=== PATIENT | female | born 1945 | race Caucasian/White ===

== ENCOUNTER 2016-07-13 05:30 | Observation (INO) | payer MEDICARE, OTHER ==
[~2016-07-13] VITALS: Ht 162.6 cm; Wt 79.7 kg
[~2016-07-13 05:30] MED LIST: ALPR.5 PO; ASPI-110 PO; CALCTAB PO; DEXI30CA PO; GABA300C5 PO; JANU50TA4 PO; LIPI20TA PO; QUIN40TA2 PO; TRAM50TA PO; VENL75TA PO; VITA100036 PO
[2016-07-13] MEDS: CHLORHEXIDINE GLUCONATE 4% SOLN 120 ML BTL TOP SCH (06:00)
[2016-07-13] MEDS ORDERED: EXPAREL PERI-ARTICULAR INJECTION (TOTAL VOL. 100 ML) P-ARTICULR SCH ×2 (06:00)
[2016-07-13] MEDS ORDERED: INSULIN HUMAN REGULAR 1,000 UNITS/10 ML VIAL SQ PRN (06:00)
[2016-07-13] MEDS ORDERED: METOPROLOL TARTRATE 25 MG TAB PO PRN (06:00)
[2016-07-13] MEDS ORDERED: LACTATED RINGER'S 1000 ML IV SCH (06:00)
[2016-07-13] MEDS ORDERED: TRANEXAMIC ACID INJ 800 MG in SODIUM CHLORIDE 0.9% INJ 100 ML IV SCH ×4 (06:00)
[2016-07-13] MEDS ORDERED: SODIUM CHLORID 0.9% 500 ML IV SCH (06:00)
[2016-07-13] MEDS ORDERED: ceFAZolin 2 GM PREMIX 50 ML IV SCH (06:00)
[2016-07-13 06:06] VITALS: BP 159/69; PULSE 80; RESP 20; TEMP 98; O2SAT 99
[2016-07-13] MEDS ORDERED: ACETAMINOPHEN 1000 MG/100 ML VIAL IV ONE (06:47)
[2016-07-13] MEDS ORDERED: MIDAZOLAM HCL 2 MG/2 ML VIAL ONE (06:47)
[2016-07-13] MEDS ORDERED: FAMOTIDINE 20 MG/2 ML VIAL ONE (06:47)
[2016-07-13] MEDS ORDERED: GENTAMICIN SULFATE 80 MG/2 ML VIAL IRRIGATION ONE (07:45)
[2016-07-13] MEDS ORDERED: MORPHINE SULFATE 4 MG/ML INJ IV PUSH PRN (08:45)
[2016-07-13] MEDS ORDERED: ACETAMINOPHEN/HYDROcodone 325 MG/7.5 MG TAB PO PRN (08:45)
[2016-07-13] MEDS ORDERED: ZOLPIDEM TARTRATE 5 MG TAB PO PRN (08:45)
[2016-07-13] MEDS ORDERED: MAGNESIUM HYDROXIDE SUSP 30 ML CUP PO PRN (08:45)
[2016-07-13] MEDS ORDERED: Post-op Orders (for Pharmacy) MISC XX ONE (08:45)
[2016-07-13] MEDS ORDERED: ONDANSETRON HCL 4 MG/2 ML VIAL IVP PRN (08:45)
[2016-07-13] MEDS ORDERED: SODIUM CHLORIDE 0.9% FLUSH 5 ML FLUSH IVF PRN (08:45)
[2016-07-13] MEDS: SODIUM CHLORIDE 0.9% FLUSH 5 ML FLUSH IVF SCH ×2 (09:00→20:32)
[2016-07-13] MEDS: LACTATED RINGER'S 1000 ML INJ 1,000 ML IV SCH ×2 (09:10→20:35)
[2016-07-13] MEDS: KETOROLAC TROMETHAMINE 30 MG/ML (IVP) VIAL IVP SCH ×3 (09:10→20:32)
[2016-07-13] MEDS ORDERED: DO NOT ADM ANY ANTICOAGULANT DRUGS XX PRN (09:15)
--- NOTE | 2016-07-13 10:05 | RADRPT ---
EXAM DATE/TIME: 07/13/2016 08:57 [facility] COMPARISON: No previous studies available for comparison. INDICATIONS : Post op right knee surgery. MEDICAL HISTORY : None. SURGICAL HISTORY : None. ENCOUNTER: Initial ACUITY: 1 day PAIN SCORE: 0/10 LOCATION: Right knee FINDINGS: The patient is status post right total knee arthroplasty. The prosthesis appears to be in good posit ion. There is no fracture or dislocation. CONCLUSION: Status post right total knee arthroplasty with prosthesis in good position. Hudson Gonzalez MD on July 13, 2016 at 9:54 Board Certified Radiologist. This report was verified electronically.
[2016-07-13] MEDS ORDERED: LACTATED RINGER'S 1000 ML INJ 1,000 ML IV ONE (12:00)
[2016-07-13] MEDS ORDERED: PROPOFOL 200 MG/20 ML AMP IV ONE (12:00)
[2016-07-13] MEDS ORDERED: ONDANSETRON HCL 4 MG/2 ML VIAL IV PUSH ONE (12:00)
[2016-07-13] MEDS ORDERED: DEXAMETHASONE SOD PHOS PF 10 MG/ML VIAL IV ONE (12:49)
[2016-07-13] MEDS ORDERED: BUPIVACAINE HCL PF 0.5% 30 ML VIAL NB ONE (12:49)
[2016-07-13] MEDS: ACETAMINOPHEN/HYDROcodone 325 MG/7.5 MG TAB PO PRN ×2 (13:06→23:57)
[2016-07-13 14:20] VITALS: BP 129/71; PULSE 82; RESP 18; TEMP 98.2; O2SAT 93
[2016-07-13 16:00] VITALS: BP 118/60; PULSE 70; RESP 18; TEMP 98.1; O2SAT 94
--- NOTE | 2016-07-13 17:07 | PD.CONS ---
[facility] By Dr. Seay Reason for Consult Medical management Primary Care Physician Iram Sauer MD Diagnoses: History of Present Illness Patient is a very pleasant 71-year-old female who still actively plays golf who is admitted today and underwent right knee surgery by Dr. Seay. Patient has been having chronic right knee pain had actually undergone 4-5 surgeries fo hdyspnea. Baseline still gets around independently however with increasing pain and finally came in here to have surgery. Patient also with history of hypertension, diabetes type 2 with good hypoglycemic awareness. She checks her blood sugars at home twice a day and ranges around 150 to 180s. [facility] consulted for medical management. Review of Systems Constitutional: DENIES: Diaphoretic episodes, Fatigue, Fever, Weight gain, Weight loss, Chills, Dizziness, Change in appetite, Night Sweats Endocrine: DENIES: Abnorml menstrual pattern, Heat/cold intolerance, Polydipsia , Polyuria, Polyphagia Eyes: DENIES: Blurred vision, Diplopia, Eye inflammation, Eye pain, Vision loss , Photosensitivity, Double Vision Ears, nose, mouth, throat: DENIES: Tinnitus, Hearing loss, Vertigo, Nasal discharge, Oral lesions, Throat pain, Hoarseness, Ear Pain, Running Nose, Epistaxis, Sinus Pain, Toothache, Odynophagia Respiratory: DENIES: Apneas, Cough, Snoring, Wheezing, Hemoptysis, Sputum production, Shortness of breath Cardiovascular: DENIES: Chest pain, Palpitations, Syncope, Dyspnea on Exertion , PND, Lower Extremity Edema, Orthopnea, Claudication Gastrointestinal: DENIES: Abdominal pain, Black stools, Bloody stools, Constipation, Diarrhea, Nausea, Vomiting, Difficulty Swallowing, Anorexia Genitourinary: DENIES: Abnormal vaginal bleeding, Dysmenorrhea, Dyspareunia, Sexual dysfunction, Urinary frequency, Urinary incontinence, Urgency, Hematuria , Dysuria, Nocturia, Vaginal discharge Musculoskeletal: COMPLAINS OF: Joint pain, Stiffness Integumentary: DENIES: Abnormal pigmentation, Pruritus, Rash, Nail changes, Breast masses, Breast skin changes, Nipple discharge Hematologic/lymphatic: DENIES: Bruising, Lymphadenopathy Immunologic/allergic: DENIES: Eczema, Urticaria Neurologic: DENIES: Abnormal gait, Headache, Localized weakness, Paresthesias, Seizures, Speech Problems, Tremor, Poor Balance Psychiatric: COMPLAINS OF: Anxiety Past Family Social History Allergies: Coded Allergies: Penicillin (Verified Allergy, Severe, SWELLING HIVES ITCHING, 08/29/14) Past Medical History History of hypertension History of esophageal stricture.status post dilation, GERD History of anxiety disorder History of hyperlipidemia History of chronic pain History of neuropathy History of diabetes type 2 Past Surgical History Left knee with multiple surgeries L4 L5 S1 spinal surgery Gallbladder surgery Reported Medications As an outpatient Quinapril 40 mg daily Gabapentin Effexor Gen. mask Atorvastatin Aspirin [place] Os-Abdelrahman plus vitamin D Active Ordered Medications Currently IV morphine when necessary for pain Xarelto Ketorolac Family History Noncontributory Social History Denies smoking or alcohol use Physical Exam Vital Signs Vital Signs Date Time Temp Pulse Resp B/P Pulse Ox O2 Delivery O2 Flow Rate FiO2 07/13/16 11:00 78 16 135/53 95 Room Air 07/13/16 10:00 74 16 131/66 95 Room Air 07/13/16 09:45 70 16 121/57 96 Room Air 07/13/16 09:30 68 16 140/71 95 Room Air 07/13/16 09:15 66 16 123/70 95 Room Air 07/13/16 09:00 66 16 124/56 95 Room Air 07/13/16 08:45 97.6 70 16 122/45 95 Room Air 07/13/16 06:06 98.0 80 20 159/69 99 Physical Exam GENERAL: This is a well-nourished, well-developed patient, in no apparent distress. SKIN: No rashes, ecchymoses or lesions. Cool and dry. HEAD: Normocephalic. No temporal or scalp tenderness. EYES: Pupils equal round and reactive. Extraocular motions intact. No scleral icterus. No injection or drainage. ENT: Nose without bleeding Throat without erythema, ] NECK: Trachea midline. No JVD or lymphadenopathy. Supple, nontender, no meningeal signs. CARDIOVASCULAR: Regular rate and rhythm without murmurs, gallops, or rubs. RESPIRATORY: Clear to auscultation. Breath sounds equal bilaterally. No wheezes , rales, or rhonchi. GASTROINTESTINAL: Abdomen soft, non-tender, nondistended. No hepato-splenomegaly , or palpable masses. No guarding. MUSCULOSKELETAL: Extremities without clubbing, cyanosis, or edema. No joint tenderness, effusion, or edema noted. No calf tenderness. Negative Homans sign bilaterally. Left knee postop dressing in place NEUROLOGICAL: Awake and alert. Cranial nerves II through XII intact. Motor and sensory grossly within normal limits. Five out of 5 muscle strength in all muscle groups. Normal speech. Laboratory Laboratory Tests Test 07/13/16 06:10 Blood Type A POSITIVE Antibody Screen NEGATIVE Imaging Last Impressions Knee X-Ray 07/13/16 0838 Signed Impressions: Service Date/Time: Wednesday, July 13, 2016 08:57 - CONCLUSION: Status post right total knee arthroplasty with prosthesis in good position. Hudson Gonzalez MD Assessment and Plan Assessment and Plan 71-year-old female Status post right total knee replacement PTOT consult History of hypertension Continue on quinapril 40 mg daily History of diabetes type 2 We'll check fingersticks twice a day and record for now restart gentleman in a.m. Place on diabetic diet History of GERD/esophageal stricture status post dilatation Continue on PPI History of neuropathy continue on gabapentin History of anxiety/depression Patient specifically states that she needs her Xanax half tab at bedtime for sleep History of hyperlipidemia continue on atorvastatin Xarelto for DVT prophylaxis thank you for this consult we'll follow patient in-house with you Dominick Gaming MD Jul 13, 2016 17:07
[2016-07-13 20:00] VITALS: BP 126/60; PULSE 78; RESP 16; TEMP 98; O2SAT 94
[2016-07-13] MEDS: GABAPENTIN 300 MG CAP PO SCH (20:32)
[2016-07-13] MEDS ORDERED: ATORVASTATIN 20 MG TAB PO SCH (21:00)
[2016-07-13] MEDS ORDERED: ALPRAZolam 0.5 MG TAB PO SCH (21:00)
[2016-07-13] MEDS ORDERED: NON-FORMULARY DRUG (Sitagliptin-Metformin (Janumet) 1 TAB) PO SCH (21:00)
[2016-07-13] MEDS ORDERED: PT JANUMET PO SCH (21:00)
--- NOTE | 2016-07-13 21:17 | HHI.FF ---
Face to Face Verification Diagnosis: (1) Status post total right knee replacement Physical Therapy Gait training Knee: Total knee, Protocol: Right, Full weight bearing Right LE Weight Bearing: WB as tolerated Right LE Range of Motion: Active ROM (AROM, AAROM, PROM, PRE. ROM goal is 0 to 135 degrees.) Nursing Nursing: Dressing changes Dressing Changes: Daily dressing change, Coverderm/Primapore Additional Instructions Remove steristrips on postop day 14. I have seen patient Meri Guadalupe on 07/13/16. My clinical findings support the need for the requested home health care services because: Ltd mobility - disease progression Limited ability to care for self High risk of falls I certify that my clinical findings support that this patient is homebound because: Post-op weakness Unsteady gait/balance Unsafe to leave home unassisted Camilo Seay MD ([facility]) Jul 13, 2016 21:17
[2016-07-14] VITALS: BP 121/60; PULSE 69; RESP 18; TEMP 97; O2SAT 93
[2016-07-14] MEDS: KETOROLAC TROMETHAMINE 30 MG/ML (IVP) VIAL IVP SCH ×2 (02:54→09:26)
[2016-07-14 04:00] VITALS: BP 140/65; PULSE 74; RESP 18; TEMP 96.8; O2SAT 94
[2016-07-14] MEDS: CHLORHEXIDINE GLUCONATE 4% SOLN 120 ML BTL TOP SCH (06:00)
[2016-07-14 06:06] LABS: HEMATOCRIT 28.9 % (35.0-46.0)
[2016-07-14 06:07] LABS: REVIEW FLAG FINAL
--- NOTE | 2016-07-14 07:13 | PD.ORT.PN ---
Subjective Post Op Day #: 1 Range of Motion 0 to 85 degrees. Distance Walked 20, then 85 feet. Objective Vitals Vital Signs Date Time Temp Pulse Resp B/P Pulse Ox O2 Delivery O2 Flow Rate FiO2 07/14/16 04:00 96.8 74 18 140/65 94 07/14/16 00:00 97.0 69 18 121/60 93 07/13/16 20:00 98.0 78 16 126/60 94 07/13/16 16:00 98.1 70 18 118/60 94 07/13/16 14:20 98.2 82 18 129/71 93 07/13/16 13:45 97.6 87 16 134/70 96 Room Air 07/13/16 13:00 83 16 131/65 95 Room Air 07/13/16 12:00 82 16 129/64 95 Room Air 07/13/16 11:30 97.5 80 16 134/65 94 Room Air 07/13/16 11:00 78 16 135/53 95 Room Air 07/13/16 10:00 74 16 131/66 95 Room Air 07/13/16 09:45 70 16 121/57 96 Room Air 07/13/16 09:30 68 16 140/71 95 Room Air 07/13/16 09:15 66 16 123/70 95 Room Air 07/13/16 09:00 66 16 124/56 95 Room Air 07/13/16 08:45 97.6 70 16 122/45 95 Room Air I/O 07/13/16 07/13/16 07/13/16 07/14/16 07/14/16 07/14/16 07:00 15:00 23:00 07:00 15:00 23:00 Intake Total 540 ml 240 ml 600 ml Balance 540 ml 240 ml 600 ml Intake Oral 240 ml 240 ml 480 ml IV Total 300 ml 120 ml # Voids 1 3 Result Diagram: 07/14/16 0519 Imaging X-ray looks good. Last 24 hours Impressions Knee X-Ray 07/13/16 0838 Signed Impressions: Service Date/Time: Wednesday, July 13, 2016 08:57 - CONCLUSION: Status post right total knee arthroplasty with prosthesis in good position. Hudson Gonzalez MD Objective Remarks She is resting comfortably, supine in bed. The original dressing is dry and intact. The neurovascular status is intact. Assessment & Plan Ortho Post Op Day #: 1 Problem List: (1) Status post total right knee replacement Plan: Continue postop care and PT. Assessment and Plan Condition: good. Orthopaedically stable. Discharge plans: Home with [facility] today. Camilo Seay MD ([facility]) Jul 14, 2016 07:13
[2016-07-14] MEDS ORDERED: HYDR-3580 PO (07:50)
[2016-07-14] MEDS ORDERED: RIVAROXABAN 10 MG TAB PO SCH (08:00)
[2016-07-14 08:18] VITALS: BP 120/64; PULSE 65; RESP 17; TEMP 96.5; O2SAT 95
[2016-07-14] MEDS ORDERED: CALCIUM/VITAMIN D 250 MG/125 U TAB PO SCH (09:00)
[2016-07-14] MEDS ORDERED: ASPIRIN EC 81 MG TABEC PO SCH (09:00)
[2016-07-14] MEDS ORDERED: PANTOPRAZOLE SOD 40 MG DELAYED RELEASE TAB PO SCH (09:00)
[2016-07-14] MEDS ORDERED: VENLAFAXINE HCL XR 75 MG CAP PO SCH (09:00)
[2016-07-14] MEDS ORDERED: LISINOPRIL 20 MG TAB PO SCH (09:00)
[2016-07-14] MEDS ORDERED: NON-FORMULARY DRUG (Dexlansoprazole (Dexilant) 60 MG) PO SCH (09:00)
[2016-07-14] MEDS ORDERED: CALCIUM CARBONATE VITAMIN D PO SCH (09:00)
[2016-07-14] MEDS ORDERED: CHOLECALCIFEROL (VIT D3) 1000 UNIT TAB PO SCH (09:00)
[2016-07-14] MEDS ORDERED: NON-FORMULARY DRUG (Venlafaxine (Effexor) 75 MG) PO SCH (09:00)
[2016-07-14] MEDS: GABAPENTIN 300 MG CAP PO SCH (09:25)
[2016-07-14] MEDS: SODIUM CHLORIDE 0.9% FLUSH 5 ML FLUSH IVF SCH (09:26)
[2016-07-14] MEDS: LACTATED RINGER'S 1000 ML INJ 1,000 ML IV SCH (09:29)
[2016-07-14 09:32] VITALS: O2SAT 95
[2016-07-14 12:45] VITALS: BP 126/70; PULSE 68; RESP 16; TEMP 96.6; O2SAT 96
--- NOTE | 2016-07-14 14:00 | HHI.PR ---
Subjective Remarks pain controlled motivated with physical therapy states have equipments/commode at home Objective Vitals Vital Signs Date Time Temp Pulse Resp B/P Pulse Ox O2 Delivery O2 Flow Rate FiO2 07/14/16 12:45 96.6 68 16 126/70 96 07/14/16 09:32 95 21 07/14/16 08:18 96.5 65 17 120/64 95 07/14/16 04:00 96.8 74 18 140/65 94 07/14/16 00:00 97.0 69 18 121/60 93 07/13/16 20:00 98.0 78 16 126/60 94 07/13/16 16:00 98.1 70 18 118/60 94 07/13/16 14:20 98.2 82 18 129/71 93 I/O 07/13/16 07/13/16 07/13/16 07/14/16 07/14/16 07/14/16 07:00 15:00 23:00 07:00 15:00 23:00 Intake Total 540 ml 240 ml 600 ml Balance 540 ml 240 ml 600 ml Intake Oral 240 ml 240 ml 480 ml IV Total 300 ml 120 ml # Voids 1 3 Result Diagram: 07/14/16 0519 Imaging Last Impressions Knee X-Ray 07/13/16 0838 Signed Impressions: Service Date/Time: Wednesday, July 13, 2016 08:57 - CONCLUSION: Status post right total knee arthroplasty with prosthesis in good position. Hudson Gonzalez MD Objective Remarks awake and alert, oriented x 3 anicteric lungs clear regular rhythm abdomen soft, nontender extremities- knee- post op dressing in place Procedures total knee arthroplasty A/P Assessment and Plan 71-year-old female Status post right total knee replacement 07/13 PTOT , ortho ff- for DC today History of hypertension Continue on quinapril 40 mg daily History of diabetes type 2 diabetic diet History of GERD/esophageal stricture status post dilatation Continue on PPI. advise on reflux measures History of neuropathy continue on gabapentin History of anxiety/depression Xanax half tab at bedtime for sleep History of hyperlipidemia continue on atorvastatin DVT prophylaxis per primary service For DC today OP ff up with PCP Dominick Gaming MD Jul 14, 2016 13:59
[2016-07-14] MEDS ORDERED: DOCUSATE SODIUM 100 MG CAP PO SCH (21:00)
--- NOTE | 2016-07-18 21:34 | MP ---
cc: Kevin GARVIN. DATE OF SURGERY 07/13/16 PREOPERATIVE DIAGNOSIS Patellofemoral arthrosis post total knee arthroplasty, right knee POSTOPERATIVE DIAGNOSIS Patellofemoral arthrosis post total knee arthroplasty, right knee OPERATION PERFORMED Resurfacing right patella. SURGEON Valdemar Garvin MD ANESTHESIA Spinal with supplemental adductor canal block and local. INDICATIONS AND FINDINGS This 71-year-old woman has had pain in her right knee beginning approximately eight years ago. In 2001, she had a total knee arthroplasty carried out out of the area. She had a manipulation under anesthesia at that time. She improved and then subsequently has recently worsened over the past eight years. She has not responded to conservative measures including exercise and strengthening, nonsteroidal anti-inflammatory agents, activity modification, physical therapy and ambulatory aids. He is unable to walk more than a half of a mile because of the pain and has difficulty with stairs and standing from a seated position. Physical findings showed well-healed surgical scar with good motion but some crepitation of patellofemoral joint and tenderness about the patella. X-rays and an MRI showed total knee arthroplasty in place without wear or loosening. There is patella wear and subchondral sclerosis on the un-resurfaced patella. Operative findings showed loss of articular cartilage to bone on metal in the patellofemoral joint on the patella side. The prosthesis used was a Protem Triathlon prosthesis with a 32 mm asymmetric cemented patella. PROCEDURE IN DETAIL The patient was brought to the operating room after an adductor canal block was carried out preoperatively. She had the spinal anesthetic administered. She received prophylactic antibiotics in the form of Ancef. She also received tranexamic acid. She was placed in a supine position on the operating table with a small bolster under the hip. Pneumatic tourniquet was applied to the right thigh. The limb was then prepped with alcohol, Hibiclens and Chloraprep and draped in the usual manner with the knee draped free. An appropriate time-out procedure was carried out. Local anesthesia was administered in the incision site prior to making an incision. An anterior incision was made following the previous incisional scar. This was then carried down into the medial retinacular which was exposed medially and laterally. A retinacular incision was then made from the superior pole of the patella down to the mid patella tendon on the medial side and up into the quadriceps slightly. The patella was reflected. Dissection was carried out about the patella removing the redundant soft tissues. The posterior surface of patella was excised with the oscillating saw. A patella drill guide was positioned for a 32 mm asymmetric patella. Drill holes were made. The patella was then cemented into place with pressurized simplex cement from the cement gun. The tibial spacer was checked and appeared to be satisfactory. There was no significant bleeding from. A drain was not placed. Wound closure then commenced after injecting the entire operative area with Exparel. The fascial structures were repaired with 0 Vicryl interrupted [id number] sutures. The subcutaneous tissues were closed with 2-0 Vicryl interrupted simple sutures with buried knots. The skin was closed with continuous subcuticular closure of 4-0 Monocryl. The wound was then dressed with Steri-strips followed by a dry dressing, ABD pad, some Sof-Rol and Jarrett bandage. A cooling pad was placed over the top of this. She was taken from the operating room to the recovery room in satisfactory condition having tolerated the procedure well. Counts were correct. Specimens none. Estimated blood loss of 30 mL. MD MARGARITA Pinzon/ /1:16 PM /9:11 PM
== END 2016-07-14 16:32 | disposition home health service (06) ==
LOC: HSDC 05:30 → EDSTATUS 07:00 → INTOOBSV 08:39 → HSDI 08:39 → N06B 14:17
PROVIDERS: ADMIT Orthopaedic Surgery; ATTEND Orthopaedic Surgery
DX: M22.41 Chondromalacia patellae, right knee (principal); M23.8X1 Other internal derangements of right knee; M25.561 Pain in right knee; R26.2 Difficulty in walking, not elsewhere classified; I10 Essential (primary) hypertension; E11.40 Type 2 diabetes mellitus with diabetic neuropathy, unspecified; E78.5 Hyperlipidemia, unspecified; K21.9 Gastro-esophageal reflux disease without esophagitis; F41.9 Anxiety disorder, unspecified; Z96.651 Presence of right artificial knee joint; Z80.42 Family history of malignant neoplasm of prostate; Z80.0 Family history of malignant neoplasm of digestive organs; Z80.1 Family history of malignant neoplasm of trachea, bronchus and lung; Z80.8 Family history of malignant neoplasm of other organs or systems; Z82.49 Family history of ischemic heart disease and other diseases of the circulatory system
CPT/HCPCS: 01392; 27438; 64450; 73560; 82948; 85014; 85018; 86850; 86900; 86901; 94150; 97110; 97116; 97163; C1776; C9290; G0378; J0131; J0690; J1100; J1580; J1885; J2250; J2405; J3010; J7120; G8987-GP; G8988-GP

== ENCOUNTER 2016-12-22 07:05 | Emergency (ER) | payer MEDICARE, OTHER ==
[~2016-12-22] VITALS: Ht 167.6 cm; Wt 79.8 kg
[~2016-12-22 07:05] MED LIST changes: +HYDR-3580 PO
[2016-12-22 07:07] VITALS: PULSE 107; RESP 16; TEMP 98.9; O2SAT 96
[2016-12-22 07:30] VITALS: BP 159/72
[2016-12-22] MEDS ORDERED: ACETAMINOPHEN/HYDROcodone 325 MG/5 MG TAB PO ONE (07:30)
--- NOTE | 2016-12-22 07:34 | PD ---
HPI Chief Complaint: Respiratory Symptoms Time Seen by Provider: 07:22 Travel History International Travel<30 days: No Contact w/Intl Traveler<30days: No Traveled to known affect area: No History of Present Illness HPI The patient was seen and examined in the presence of the nurse. She complains of pain in her chest. It's located on the right side of the chest both front side and back. Duration 12 hours. No injury. Readily reproducible with movement or touching her chest wall. She does have COPD and has been coughing hard for the last couple of days. No fever. Symptoms severity is moderate. 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) Cardiovascular Problems: Yes (HTN, CHOL) High Cholesterol: Yes Chemotherapy: No Diabetes: Yes Diminished Hearing: No Endocrine: Yes Gastrointestinal Disorders: Yes GERD: Yes Genitourinary: No Hepatitis: No Hiatal Hernia: Yes Hypertension: Yes Immune Disorder: No Implanted Vascular Access Dvce: Yes Musculoskeletal: Yes (RIGHT PATELLA CRACKED,TEAR RIGHT ROTATOR CUFF, LEFT KNEE DEGENERATION) Neurologic: Yes (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, DIFFICULTY WITH BALANCE) Psychiatric: Yes (ANXIETY/DEPRESSION) Reproductive: No Respiratory: Yes (COPD) Immunizations Current: Yes Radiation Therapy: No Sleep Apnea: Yes (own c-pap) Thyroid Disease: No ?: Not Menopausal: Yes Past Surgical History Abdominal Surgery: Yes (LAP CHOLECYSTECTOMY) Body Medical Devices: LUMBAR HARDWARE Cholecystectomy: Yes Eye Surgery: Yes (BILATERAL CATARACT) Gynecologic Surgery: Yes (TUBAL LIG.) Joint Replacement: Yes (RIGHT KNEE) Pacemaker: No Tonsillectomy: Yes Other Surgery: Yes Social History Alcohol Use: Yes (OCCASIONALLY) Tobacco Use: No (QUIT 40 YRS AGO) Substance Use: No Allergies-Medications (Allergen,Severity, Reaction): Coded Allergies: Penicillin (Verified Allergy, Severe, SWELLING HIVES ITCHING, 12/22/16) Reported Meds & Prescriptions Reported Meds & Active Scripts Active Reported Quinapril HCl 40 Mg Tablet 1 Tab PO DAILY Calcium 500 + Vit D Caplet (Calcium Carbonate/Vitamin D3) 1 Each Tablet 1 Tab DAILY Dexilant (Dexlansoprazole) 60 Mg Sunil.bp 1 Cap PO EVERY OTHER DAY Gabapentin 300 Mg Cap 300 Mg PO HS Tramadol (Tramadol HCl) 50 Mg Tab 50 Mg PO Q4H PRN Janumet (Sitagliptin-Metformin) 50-500 Mg Tab 1 Tab PO BID Vitamin D3 (Cholecalciferol) 1,000 Unit Cap 1,000 Units PO DAILY Aspirin 81 (Aspirin) 81 Mg Tabdr 81 Mg PO DAILY Lipitor (Atorvastatin Calcium) 20 Mg Tab 20 Mg PO HS Xanax (Alprazolam) 0.5 Mg Tab 0.5 Mg PO HS Effexor (Venlafaxine HCl) 75 Mg Tab 75 Mg PO HS Review of Systems General / Constitutional: No: Fever Eyes: No: Visual changes HENT: No: Headaches Cardiovascular: Positive: Chest Pain or Discomfort Respiratory: Positive: Cough, No: Shortness of Breath Gastrointestinal: No: Abdominal Pain Genitourinary: No: Dysuria Musculoskeletal: No: Pain Skin: No Rash Neurologic: No: Weakness Psychiatric: No: Depression Endocrine: No: Polydipsia Hematologic/Lymphatic: No: Easy Bruising Physical Exam Narrative GENERAL: Well-nourished, well-developed patient in no apparent distress. SKIN: Focused skin assessment reveals no rash and nodules. Skin is Warm and dry. HEAD: Atraumatic. Normocephalic. EYES: Pupils equal and round. No scleral icterus. No injection or drainage. ENT: No nasal bleeding or discharge. Mucous membranes pink and moist. NECK: Trachea midline. No JVD. CARDIOVASCULAR: Regular rate and rhythm. No murmur appreciated. RESPIRATORY: No accessory muscle use. Clear to auscultation. Breath sounds equal bilaterally. GASTROINTESTINAL: Abdomen soft, non-tender, nondistended. Hepatic and splenic margins not palpable. MUSCULOSKELETAL: No obvious deformities. No clubbing. No cyanosis. No edema. Readily reproducible chest wall tenderness in the right side of the upper torso. It includes rib cage and pectoral region. No crepitus or bruising. NEUROLOGICAL: Awake and alert. No obvious cranial nerve deficits. Motor grossly within normal limits. Normal speech. PSYCHIATRIC: Appropriate mood and affect; insight and judgment normal. Data Data Last Documented VS Vital Signs Date Time Temp Pulse Resp B/P Pulse Ox O2 Delivery O2 Flow Rate FiO2 12/22/16 07:30 109 16 95 Room Air 12/22/16 07:30 159/72 12/22/16 07:07 98.9 Orders Chest, Single Ap (12/22/16 ) Acetamin-Hydrocod 325-5 Mg ([place] 5-325 (12/22/16 07:30) MDM Medical Decision Making Medical Screen Exam Complete: Yes Emergency Medical Condition: Yes Medical Record Reviewed: Yes Differential Diagnosis Chest wall pain, intercostal muscle strain, rib fracture Narrative Course I have reviewed the patient's electronic medical record. I reviewed her chest x-ray which shows some infiltrate which could be infectious. Coupled with her cough producing chest wall pain I've prescribed her Zithromax and a dozen Tylenol with codeine. This patient has clear-cut readily reproducible muscular skeletal chest wall pain. May have aggravated during her extended coughing spells. She has COPD but no longer smokes I gave her a pain pill here Diagnosis Primary Impression: Bronchopneumonia Additional Impressions: Musculoskeletal chest pain COPD (chronic obstructive pulmonary disease) Qualified Code: J44.0 - Chronic obstructive pulmonary disease with acute lower respiratory infection Additional Instructions: The patient was advised to follow up with their physician and return if they worsen. The patient was warned about potential sedation for the medications they will receive on prescription. Med/Other Pt SpecificInfo: Prescription(s) given Scripts Azithromycin (Zithromax Z-Alfredo)250 Mg Siel605 Mg PO DIRECTED #1 DSPK Ref 0 500 MG (2 tabs) day 1, then 1 tab days 2-5. Prov:Conner Chinchilla MD 12/22/16 Acetaminophen-Codeine (Tylenol-Codeine #3)300-30 mg Tab1 Tab PO Q6HR PRN (PAIN) #12 TAB Ref 0 Prov:Conner Chinchilla MD 12/22/16 Disposition: 01 DISCHARGE HOME Condition: Stable Conner Chinchilla MD Dec 22, 2016 07:34
[2016-12-22] MEDS ORDERED: DEXI60CA2 PO (07:41)
[2016-12-22] MEDS ORDERED: QUIN40TA17 PO (07:51)
[2016-12-22] MEDS ORDERED: CALCTAB25 (07:51)
--- NOTE | 2016-12-22 07:57 | RADHPO ---
EXAM DATE/TIME: 12/22/2016 07:39 [facility] COMPARISON: CHEST SINGLE AP, August 29, 2014, 19:34. INDICATIONS : Chest pain & shortness of breath. MEDICAL HISTORY : Hypercholesterolemia. Gastroesophageal reflux disease. Chronic obstructive pulmonary disease. Hardeep ropathy left lower extremity. Hypertension. Hiatial hernia. Diabetic. SURGICAL HISTORY : Tonsillectomy. Tubal ligation. Total knee replacement, right. Cholecystectomy. Lumbar laminectomy. EG D. ENCOUNTER: Initial ACUITY: 1 day PAIN SCORE: 7/10 LOCATION: chest FINDINGS: A single view of the chest demonstrates bibasilar patchy infiltrates greater right lower lobe. Heart normal in size. Osseous structures are intact. CONCLUSION: Bibasilar patchy pneumonia. Recommend treatment and followup to resolution. Mynor Sanchez MD on December 22, 2016 at 7:54 Board Certified Radiologist. This report was verified electronically.
[2016-12-22] MEDS ORDERED: TYLETAB34 PO (08:05)
[2016-12-22] MEDS ORDERED: ZITHTAB PO (08:05)
[2016-12-22 08:43] VITALS: BP 116/60
[2016-12-22 08:44] VITALS: RESP 16
== END 2016-12-22 09:00 | disposition home or self-care (01) ==
LOC: PHED 07:05
DX: J18.0 Bronchopneumonia, unspecified organism (principal); R07.89 Other chest pain; J44.0 Chronic obstructive pulmonary disease with (acute) lower respiratory infection; Z79.01 Long term (current) use of anticoagulants; I10 Essential (primary) hypertension
CPT/HCPCS: 71010; 99284

== ENCOUNTER 2016-12-24 15:39 | Inpatient (IN) | payer MEDICARE, OTHER ==
[~2016-12-24 15:39] MED LIST changes: -CALCTAB PO; +CALCTAB25; -DEXI30CA PO; +DEXI60CA2 PO; -HYDR-3580 PO; +QUIN40TA17 PO; -QUIN40TA2 PO; +TYLETAB34 PO; +ZITHTAB PO
[2016-12-24 16:00] VITALS: BP 165/70; PULSE 94; RESP 18; TEMP 102.4; O2SAT 92
[2016-12-24] MEDS ORDERED: VANCOMYCIN 1,000 MG/NS 250 ML IV ONE ×4 (16:45→21:00)
[2016-12-24] MEDS ORDERED: cefTRIAXone 1,000 MG/NS 100 ML IV SCH ×2 (17:00)
[2016-12-24 17:14] LABS: MEAN CELL VOLUME 68.8 FL (80.0-100.0); MEAN CORPUSCULAR HEMOGLOBIN 21.4 PG (27.0-34.0); PLATELET COUNT 237 TH/MM3 (150-450); RED BLOOD COUNT 4.21 MIL/MM3 (4.00-5.30); RED CELL DISTRIBUTION WIDTH 16.5 % (11.6-17.2)
[2016-12-24] MEDS ORDERED: ONDANSETRON ODT 4 MG TAB PO PRN (17:15)
[2016-12-24] MEDS ORDERED: ACETAMINOPHEN 500 MG CPLT PO PRN (17:15)
[2016-12-24 17:19] LABS: CHLORIDE 100 MEQ/L (98-107); POTASSIUM 3.8 MEQ/L (3.5-5.1); SODIUM (NA) 135 MEQ/L (136-145)
[2016-12-24 17:23] LABS: ANION GAP 10 MEQ/L (5-15); BICARBONATE 25.1 MEQ/L (21.0-32.0); BLOOD UREA NITROGEN 17 MG/DL (7-18)
[2016-12-24 17:26] LABS: ALT (GPT) 34 U/L (10-53); AST (GOT) 23 U/L (15-37); GLOMERULAR FILTRATION RATE 70 ML/MIN (>89)
[2016-12-24 17:27] LABS: TOTAL BILIRUBIN ADULT 0.9 MG/DL (0.2-1.0)
[2016-12-24 17:29] LABS: ALKALINE PHOSPHATASE 90 U/L (45-117)
[2016-12-24 17:33] LABS: HEMO FLAGS AUTO DIFF
[2016-12-24 17:35] VITALS: TEMP 102.7
[2016-12-24 18:39] LABS: BANDS 4 % (0-6); EOSINOPHILS 1 % (0-4); NEUTROPHIL # MANUAL DIFF 11.2 TH/MM3 (1.8-7.7); POLYS (SEG NEUTROPHILS) 89 % (16-70); WBC DIFF SAMPLE 100
[2016-12-24 18:42] LABS: PLATELET ESTIMATE SMEAR NORMAL (NORMAL); PLATELET MORPHOLOGY NORMAL (NORMAL); SCAN/DIFF FINAL DIFF MANUAL
[2016-12-24 18:45] VITALS: TEMP 101
--- NOTE | 2016-12-24 19:32 | RADRPT ---
EXAM DATE/TIME: 12/24/2016 18:15 [facility] COMPARISON: No previous studies available for comparison. INDICATIONS : Pneumonia. Chest pain and cough x 2 days. RADIATION DOSE: 12.51 CTDIvol (mGy) MEDICAL HISTORY : Gastroesophageal reflux disease. Hernia, hiatal. Chronic obstructive pulmonary disease. Diabetes. Hy pertension. SURGICAL HISTORY : Cholecystectomy. ENCOUNTER: Initial ACUITY: 2 days PAIN SCALE: 4/10 LOCATION: Bilateral chest TECHNIQUE: Volumetric scanning of the chest was performed. Using automated exposure control and adjustment of t he mA and/or kV according to patient size, radiation dose was kept as low as reasonably achievable to obtain optimal diagnostic quality images. DICOM format image data is available electronically for r eview and comparison. FINDINGS: LUNGS: There is no pneumothorax. There is dense consolidation in both lower lobes with air bronchograms righ t greater than left. No concerning pulmonary nodule is visualized. PLEURAE: There is no pleural thickening or pleural effusion. MEDIASTINUM: The heart and great vessels demonstrate no acute abnormality. There is no mediastinal or hilar lymph adenopathy. AXILLAE: Within normal limits. No lymphadenopathy. MUSCULOSKELETAL: Within normal limits for patient age. MISCELLANEOUS: The visualized upper abdominal organs demonstrate no acute abnormality. There is a large cystic struc ture in the left lobe of the liver measuring up to 5.1 x 2.9 cm in diameter. The patient is status po st cholecystectomy. CONCLUSION: 1. Dense consolidation in both lower lobes right greater than left consistent with the history of pne umonia. 2. Large cystic structure in the left lobe of the liver. Jose Gonsalez MD on December 24, 2016 at 19:26 Board Certified Radiologist. This report was verified electronically.
[2016-12-24 20:00] VITALS: BP 129/73; PULSE 104; PULSE 108; RESP 18; TEMP 100.6; O2SAT 91
[2016-12-24] MEDS: RESP: ALBUTEROL 2.5 MG/IPRATROPIUM 0.5 MG NEB (SCH) NEB (20:00)
[2016-12-24] MEDS: cefTRIAXone 1,000 MG/NS 100 ML IV SCH ×2 (20:54)
[2016-12-24] MEDS: SODIUM CHLOR 0.9% 1000 ML INJ 1,000 ML IV SCH ×2 (20:54→22:37)
[2016-12-24] MEDS: GABAPENTIN 300 MG CAP PO SCH (20:54)
[2016-12-24] MEDS: ALPRAZolam 0.5 MG TAB PO PRN (20:55)
[2016-12-24 21:25] VITALS: O2SAT 93
[2016-12-25] VITALS (12 sets, daily range): BP systolic 88–143; BP diastolic 53–74; PULSE 88–111; RESP 16–21; TEMP 98.2–101.7; O2SAT 88–96
--- NOTE | 2016-12-25 07:13 | HHI.FPPN ---
Subjective Remarks Slept last PM, still with fever. Cough without sputum. Notes chest feels tight , some mid back pain, postitive nausea, no vomiting. no diarrhea. no edema, no leg pain. Overall fatigued. Notes she was able to eat a little last PM. Frustrated with being ill. Notes her sugars have been pretty well controlled but since she was recently on steroids her sugars were a bit higher. Objective Vitals Vital Signs Date Time Temp Pulse Resp B/P Pulse Ox O2 Delivery O2 Flow Rate FiO2 12/25/16 04:00 100.1 107 18 135/74 94 12/25/16 00:00 101.7 111 16 143/72 88 12/24/16 21:25 93 Nasal Cannula 2.00 12/24/16 20:00 104 12/24/16 20:00 100.6 108 18 129/73 91 12/24/16 18:45 101.0 12/24/16 17:35 102.7 12/24/16 16:00 102.4 94 18 165/70 92 I/O 12/24/16 12/24/16 12/24/16 12/25/16 12/25/16 12/25/16 07:00 15:00 23:00 07:00 15:00 23:00 Intake Total 700 ml Balance 700 ml Intake Oral 700 ml # Voids 2 # Bowel Movements 0 Result Diagram: 12/24/16 1635 12/24/16 1635 Objective Remarks Gen: wdwf on nasal CPAP. no distress, laying supine, breathing calmly, seems fatigued, just not feeling great. Has had fevers to 102 most of the night CV: RRR, no longer tachycardic Lungs: diminished at the bases, no rhonchi this AM, better air movement (but she is on her CPAP) Abd: soft, NT, normal BS Ext: thin, no edema Urinary Catheter: No Vascular Central Line Catheter: No A/P Problem List: (1) Sepsis Status: Acute Plan: Elevated WBC, fever to 102, tachycardia, bilateral Lower lobe pneumonia. lactic acid was wnl. Pending blood and sputum cultures. Stable at this time (2) Pneumonia of both lower lobes Status: Acute Plan: She has been ill intermittantly since October never with complete resolution. She has been on cipro and 2 courses of zithromax along with steroid courses without improvement. I have stopped the steroids at this time. I put her on Rocephin (she just completed 5 days of zithromax yesterday) and Vanco 1gm yesterday. Pending cultures and respiratory panels and legionella titers. ID consult placed. Start incentive spirometry. she has PCN allergy. Activity as tolerated in her room. Anticipate at least a 3 day hospitalization for evaluation and stabilization. O2 sats have been good. (3) COPD (chronic obstructive pulmonary disease) Status: Chronic Plan: She wasn't symptomatic until being ill. She has been on breo for the past month with some improvement. Continuing at this time. (4) Hyperlipidemia Status: Chronic Plan: She has been on lipitor 20mg per day. I am holding this for now due to acute infection. (5) Hypertension Status: Chronic Plan: She has been well controlled with NIRALI-I. Renal function is good. Continue for now but adjust if BPs go low with infection. (6) Type 2 diabetes mellitus Status: Chronic Plan: She has been on janumet 50/500mg 2 tabs PO daily for some time. I am holding it now with acute infection. May need to restart. Monitor blood sugars at least BID. Problem Qualifiers (1) Sepsis: Qualified Code: A41.9 - Sepsis, due to unspecified organism (2) Pneumonia of both lower lobes: Qualified Code: J18.9 - Pneumonia of both lower lobes due to infectious organism (3) COPD (chronic obstructive pulmonary disease): Qualified Code: J44.0 - Chronic obstructive pulmonary disease with acute lower respiratory infection (4) Hyperlipidemia: Qualified Code: E78.2 - Mixed hyperlipidemia (5) Hypertension: Qualified Code: I10 - Essential hypertension (6) Type 2 diabetes mellitus: Qualified Code: E11.9 - Type 2 diabetes mellitus without complication, without long-term current use of insulin Iram Sauer MD Dec 25, 2016 07:13
[2016-12-25] MEDS: RESP: ALBUTEROL 2.5 MG/IPRATROPIUM 0.5 MG NEB (SCH) NEB ×4 (07:52→19:58)
--- NOTE | 2016-12-25 08:08 | MH ---
cc: DESMOND CORREA DATE OF ADMISSION 12/24/2016 DATE OF 1945 CHIEF COMPLAINT Feeling poorly. ADMISSION DIAGNOSIS Bilateral pneumonia, fever, possible sepsis. HISTORY OF PRESENT ILLNESS Ms. Guadalupe is a 71-year-old white female who is has essentially been ill since October. She initially had been ill, had been seen in Urgent Care and given Cipro and steroids. She seemed to improve gradually. By November, she had recurrent symptoms and was treated with Zithromax. Again, she improved slightly but not completely. She recently went back to the urgent care over the week and was given another course of Zithromax. We had also started her on Breo for a decrease in her spirometry somewhere in the interim which also did give her some momentary relief of symptoms. Today she comes in and she is having fever, lethargy, decreased appetite, cough with a brownish yellow sputum and overall feeling poorly. PAST MEDICAL HISTORY Significant for history of: 1. Insomnia 2. Type 2 diabetes well controlled without medications. 3. Hyperlipidemia 4. Peripheral neuropathy 5. Hypertension 6. Gastroesophageal reflux disease 7. Sebaceous cyst 8. Hidradenitis 9. History of bronchitis. 10. Santizo's esophagus 11. Diverticulosis PAST SURGICAL HISTORY 1. Right knee replacement in July 2016 2. Bilateral cataract surgery 3. Lumbar disk surgery SOCIAL HISTORY She is . She is retired since 2011. She had smoked two packs per day for 20 years, quit in 1987. She has minimal alcohol. No illicit drugs. MEDICATIONS 1. DuoNeb q.i.d. 2. Prednisone 10 mg a day 3. Breo elliptica one inhalation daily 200/25 micrograms dose 4. Quinapril 40 mg daily 5. Dexilant 60 mg daily 6. Alprazolam 1 mg at bedtime p.r.n. insomnia 7. Venlafaxine 75 mg daily 8. Lipitor 20 mg per day 9. Janumet 50-500 mg two tabs daily 10. Gabapentin 300 mg b.i.d. 11. Aspirin 81 mg daily ALLERGIES PENICILLIN WHICH CAUSED RASH, AMBIEN, LUNESTA, RESTORIL CAUSED HER TO HAVE SLEEP WALKING AND JUST DID NOT WORK, LYRICA SHE DID NOT TOLERATE. FAMILY HISTORY Brother in A snow mobile accident. Dad had colon cancer, prostate cancer, skin cancers, heart disease, . Mom had hyperlipidemia, hypertension and arthritis, at age 81. She also had lung cancer. VACCINE Flu vaccines yearly, Prevnar 12/2014, Pneumovax June 2013. OTHER PHYSICIANS Dr. Butts PAST SURGICAL HISTORY She did have a colonoscopy in September of this year. OBJECTIVE VITAL SIGNS: In my office, she had a temperature 99.8 with O2 sat of 95%, blood pressure 128/70, heart rate was 110. GENERAL: She is a well-developed white female appearing acutely ill. She was sitting in the chair leaning against her very fatigued, looking comfortable. HEENT: Pupils are equal and reactive, but sluggish eyelids. Oropharynx is moist. She has dentures. No lesions. Tympanic membranes within normal limits bilaterally. NECK: Supple without lymphadenopathy. LUNGS: Shows diffusely decreased breath sounds with rhonchi at the bilateral bases. No egophony audible. No wheezing. Respiratory rate was 26 on exam. CARDIOVASCULAR: Regular rate and rhythm, but tachycardic, heart rate 100. No murmur. ABDOMEN: Soft and nontender. EXTREMITIES: No rashes. No edema. 2+ pulses throughout. No signs of ischemia. MUSCULOSKELETAL: She is generally weak with no focal deficits. ASSESSMENT AND PLAN 1. Pneumonia. She had recently been to the emergency room and found to have bilateral lower lobe infiltrates. It seems as though that may have progressed. I am going to admit her to the hospital for IV antibiotics given her failure of outpatient therapy and will continue nebulizer therapy, oxygen as needed, started on incentive spirometry and have ordered a CT scan of the thorax to evaluate further given her prior tobacco history and recurrent illness. Depending upon the outcome of the CT scan, we will either consult pulmonology or infectious disease to aid in care given her prolonged illness. I have placed on Rocephin and a dose of vancomycin to start and have ordered a sputum culture, AFB stain and culture and need to be on respiratory isolation. 2. Hypertension. We will continue her medications. 3. Hyperlipidemia. I am holding her cholesterol medications for right now due to her adenomas. 4. Type 2 diabetes. She is spending the night, I will hold meds for now given acute illness and sepsis due to the metformin component restart medications if needed when stabilized, may use insulin in the interim if needed. MD DEVON Griffiths/KAYLEIGH /5:51 AM /7:50 AM MTDPhani
[2016-12-25] MEDS: ENOXAPARIN SODIUM 30 MG/0.3 ML SYRINGE SQ SCH (08:53)
[2016-12-25] MEDS: PANTOPRAZOLE SOD 40 MG DELAYED RELEASE TAB PO SCH (08:53)
[2016-12-25] MEDS: LISINOPRIL 20 MG TAB PO SCH (08:54)
[2016-12-25] MEDS: VENLAFAXINE HCL XR 37.5 MG CAP PO SCH (08:54)
[2016-12-25] MEDS: GABAPENTIN 300 MG CAP PO SCH ×2 (08:54→20:39)
[2016-12-25] MEDS: SODIUM CHLOR 0.9% 1000 ML INJ 1,000 ML IV SCH ×2 (08:55→16:50)
[2016-12-25] MEDS ORDERED: BREO ELLIPTA INH SCH (09:00)
[2016-12-25] MEDS: ACETAMINOPHEN/HYDROcodone 325 MG/5 MG TAB PO PRN ×2 (09:08→16:53)
[2016-12-25 09:45] LABS: BOR. HOLMESII NOT DETECTED (NOT DETECT); BOR. PARA/BRONCH NOT DETECTED (NOT DETECT); BOR. PERTUSSIS NOT DETECTED (NOT DETECT); INFLUENZA B NOT DETECTED (NOT DETECT); RESP SYNCYTIAL VIRUS A NOT DETECTED (NOT DETECT); RESP SYNCYTIAL VIRUS B NOT DETECTED (NOT DETECT)
--- NOTE | 2016-12-25 16:10 | PD.CONS ---
History of Present Illness Service Infectious disease Consult Requested By Dr. Sauer Reason for Consult Evaluate patient with pneumonia, failed outpatient treatment Primary Care Physician Iram Sauer MD Diagnoses: History of Present Illness Patient seen and examined. Records reviewed. Patient is a 71-year-old female, who has a history of heavy smoking, but she quit back in 1987, was apparently recently told that she has COPD. In the past when she would have an upper respiratory infection, it would quickly go to her chest and she would have bouts of bronchitis. Her most recent problems started in October when she started having cough and congestion, and she would bring up some greenish phlegm. Gone to the [facility] urgent [facility] center, and was diagnosed to have bronchitis, and was given some antibiotic. There was no chest x-ray done at that time, and she didn't think she had any fever or chills at that time. She would usually take the antibiotic for about a week, and there was some partial improvement in her symptoms. In November she had another episode and again went to walk-in clinic, and given antibiotic with some partial relief. More recently she had recurrence of the symptoms but this time she was having trouble breathing, and was having a hard time expectorating. She went to the emergency room here, and a chest x-ray was done which showed basilar infiltrates , and she was diagnosed to have bronchopneumonia, and was given some antibiotic. She started having some fevers and some chills, and noticed that she's been getting more short of breath, which apparently has been present over the last 3 weeks, but has just recently been worsening. She was also getting some discomfort in the right lateral chest area, which seems to be worsening. She presented back to the hospital and has now been admitted. CT of the chest did show evidence of basilar infiltrates bilaterally. She has been febrile. Patient denies any recent exposure to any sick child. No exposure to any birds. She lives with the who apparently does not have any problem as far as respiratory infection. No recent travel. Infectious disease consultation has been requested to evaluate the patient. Review of Systems Constitutional: COMPLAINS OF: Fever, Chills, Night Sweats Eyes: DENIES: Eye pain Ears, nose, mouth, throat: DENIES: Nasal discharge, Oral lesions, Ear Pain Respiratory: COMPLAINS OF: Cough, Shortness of breath, DENIES: Sputum production Cardiovascular: COMPLAINS OF: Chest pain, DENIES: Palpitations, Syncope Gastrointestinal: DENIES: Abdominal pain, Diarrhea, Nausea, Vomiting, Difficulty Swallowing Genitourinary: COMPLAINS OF: Dysuria Musculoskeletal: COMPLAINS OF: Back pain, DENIES: Neck pain Integumentary: DENIES: Rash Hematologic/lymphatic: DENIES: Lymphadenopathy Neurologic: DENIES: Headache Psychiatric: DENIES: Confusion, Hallucinations Past Family Social History Allergies: Coded Allergies: Penicillin (Verified Allergy, Severe, SWELLING HIVES ITCHING, 12/22/16) Past Medical History Insomnia Type 2 diabetes well controlled without medications. Hyperlipidemia Peripheral neuropathy Hypertension Gastroesophageal reflux disease Sebaceous cyst Hidradenitis History of bronchitis. Santizo's esophagus Diverticulosis Past Surgical History Right knee replacement in July 2016 Bilateral cataract surgery Lumbar disk surgery Active Ordered Medications Tylenol [place] Albuterol Xanax Rocephin Lovenox Neurontin Levaquin Prinivil Zofran Protonix Effexor Family History Brother in snow mobile accident. Dad had colon cancer, prostate cancer, skin cancers, and heart disease. Mom had hyperlipidemia, hypertension and arthritis, at age 81. She also had lung cancer. Social History She is . She is retired since 2011. She had smoked two packs per day for 20 years, quit in 1987. She has minimal alcohol. No illicit drugs. Physical Exam Vital Signs Vital Signs Date Time Temp Pulse Resp B/P Pulse Ox O2 Delivery O2 Flow Rate FiO2 12/25/16 15:00 88 12/25/16 12:00 98.4 100 20 88/58 95 12/25/16 10:08 18 12/25/16 08:00 99.5 102 21 126/67 95 12/25/16 07:54 95 Nasal Cannula 2.00 12/25/16 07:00 97 12/25/16 04:00 100.1 107 18 135/74 94 12/25/16 00:00 101.7 111 16 143/72 88 12/24/16 21:25 93 Nasal Cannula 2.00 12/24/16 20:00 104 12/24/16 20:00 100.6 108 18 129/73 91 12/24/16 18:45 101.0 12/24/16 17:35 102.7 Physical Exam GENERAL: Patient is a well-nourished, well-developed patient, awake and alert , not in respiratory distress. SKIN: Warm and dry. No generalized rash, no ecchymoses and no evidence of embolic lesions. HEAD: Atraumatic. Normocephalic. No temporal wasting, or tenderness. EYES: [place] conjunctiva. No petechia or hemorrhage. Pupils equal, round and reactive to light. Extraocular movements full and intact. No scleral icterus. No injection or drainage. EARS, NOSE AND THROAT: Nose without bleeding or purulent nasal discharge. No sinus tenderness. Mucous membranes pink and moist. No oral lesions noted. No exudate. No oral thrush. NECK: Trachea midline. Supple and not tender, no meningeal signs CARDIOVASCULAR: Regular rate and rhythm. No murmurs, rubs or gallops heard RESPIRATORY: Clear to auscultation. Breath sounds equal bilaterally. No rales , wheezing or rhonchi ABDOMEN: Soft, non-tender, nondistended. Bowel sounds present and normoactive. No guarding. No rebound. No organomegaly. EXTREMITIES: No clubbing, cyanosis, or edema.No joint effusion, has good ROM. No calf tenderness. Well perfused and warm. NEUROLOGICAL: Awake and alert. Cranial nerves grossly intact. Motor grossly within normal limits. PSYCHIATRIC: Normal affect, calm and cooperative. LINE: No evidence of infection Laboratory Laboratory Tests Test 12/24/16 12/24/16 16:35 20:50 White Blood Count 12.0 Red Blood Count 4.21 Hemoglobin 9.0 Hematocrit 29.0 Mean Corpuscular Volume 68.8 Mean Corpuscular Hemoglobin 21.4 Mean Corpuscular Hemoglobin 31.0 Concent Red Cell Distribution Width 16.5 Platelet Count 237 Mean Platelet Volume 8.7 Neutrophils (%) (Auto) Lymphocytes (%) (Auto) Monocytes (%) (Auto) Eosinophils (%) (Auto) Basophils (%) (Auto) Neutrophils # (Auto) Lymphocytes # (Auto) Monocytes # (Auto) Eosinophils # (Auto) Basophils # (Auto) CBC Comment AUTO DIFF Differential Total Cells 100 Counted Neutrophils % (Manual) 89 Band Neutrophils % 4 Lymphocytes % 5 Monocytes % 1 Eosinophils % 1 Neutrophils # (Manual) 11.2 Differential Comment FINAL DIFF MANUAL Platelet Estimate NORMAL Platelet Morphology Comment NORMAL Sodium Level 135 Potassium Level 3.8 Chloride Level 100 Carbon Dioxide Level 25.1 Anion Gap 10 Blood Urea Nitrogen 17 Creatinine 0.81 Estimat Glomerular Filtration 70 Rate Random Glucose 144 Lactic Acid Level 1.5 Calcium Level 8.9 Total Bilirubin 0.9 Aspartate Amino Transf 23 (AST/SGOT) Alanine Aminotransferase 34 (ALT/SGPT) Alkaline Phosphatase 90 Total Protein 6.9 Albumin 2.8 Adenovirus (PCR) NOT DETECTED Bordetella holmesii (PCR) NOT DETECTED Bordetella pertussis DNA (PCR) NOT DETECTED B. parapertussis/bronchi (PCR) NOT DETECTED Human Metapneumovirus (PCR) NOT DETECTED Influenza Type A (RT-PCR) NOT DETECTED Influenza Type A (H1) (PCR) NOT DETECTED Influenza Type A (H3) (PCR) NOT DETECTED Influenza Type B (RT-PCR) NOT DETECTED Parainfluenza Type 1 (PCR) NOT DETECTED Parainfluenza Type 2 (PCR) NOT DETECTED Parainfluenza Type 3 (PCR) NOT DETECTED Parainfluenza Type 4 (PCR) NOT DETECTED Resp Syncytial Virus Type A NOT DETECTED (PCR) Resp Syncytial Virus Type B NOT DETECTED (PCR) Rhinovirus (PCR) NOT DETECTED Date/Time Procedure Status Source Growth 12/24/16 16:48 Aerobic Blood Culture - Preliminary Resulted Blood Peripheral NO GROWTH IN 1 DAY 12/24/16 16:48 Anaerobic Blood Culture - Preliminary Resulted Blood Peripheral NO GROWTH IN 1 DAY Result Diagram: 12/24/16 1635 12/24/16 1635 Assessment and Plan Assessment and Plan IMPRESSION Bilateral pneumonia Previous episodes of bronchitis, likely COPD exacerbation - not known if with PNA, CXR not done, but symptoms sound more of bronchitis COPD,. with previous Hx heavy smoking RECOMMENDATION Continue Rocephin Add Levaquin for atypical coverage Will obtain mycoplasma and chlamydia antibody Try to get sputum G/S C/S Check Legionella, pneumococcal antigen Check influenza Follow cultures and adjust antibiotics accordingly Follow temps Monitor progress I will determine course of treatment depending on the results of the workup I will follow along with you Thank you for this consultation Discussed Condition With Explained plan to the patient Miesha Yancey MD Dec 25, 2016 16:10
[2016-12-25] MEDS: LEVOFLOXACIN 750 MG PREMIX INJ 150 ML IV SCH (16:51)
[2016-12-25 18:55] LABS: BLOOD, URINE TRACE (NEG); GLUCOSE,URINE 500 mg/dL (NEG); KETONE, URINE TRACE mg/dL (NEG); NITRITE,URINE NEG (NEG); PH, URINE 5.5 (5.0-8.5)
[2016-12-25 19:00] LABS: URINE COLOR YELLOW (YELLW/STRAW)
[2016-12-25 19:01] LABS: COMMENT (UR) CULT NOT INDICATED; CULTURE IF INDICATED CULT NOT INDICATED; RBC, URINE 0-2 /hpf (0-3); WBC, URINE 0-2 /hpf (0-5)
[2016-12-25] MEDS: cefTRIAXone 1,000 MG/NS 100 ML IV SCH ×2 (20:39)
[2016-12-25] MEDS: ALPRAZolam 0.5 MG TAB PO PRN (22:00)
[2016-12-26] VITALS (10 sets, daily range): BP systolic 83–142; BP diastolic 55–77; PULSE 73–106; RESP 14–22; TEMP 97.8–100.1; O2SAT 94–100
[2016-12-26] MEDS: SODIUM CHLOR 0.9% 1000 ML INJ 1,000 ML IV SCH (05:32)
[2016-12-26] MEDS: RESP: ALBUTEROL 2.5 MG/IPRATROPIUM 0.5 MG NEB (SCH) NEB ×4 (07:42→19:06)
--- NOTE | 2016-12-26 09:49 | HHI.PR ---
Subjective Remarks Written by Conner Hawk, acting as scribe for Dr. Ocasio on 12/26/16 at 09: 48. Patient is seen and examined today with Dr. Ocasio. Patient states that she did not get much sleep last night due to further testing that was ordered. She indicates that she tried to ambulate more yesterday however got really winded and short of breath. She does not have oxygen at home, will likely need evaluation for home oxygen prior to discharge. Patient afebrile for over [address] by infectious disease Objective Vitals Vital Signs Date Time Temp Pulse Resp B/P Pulse Ox O2 Delivery O2 Flow Rate FiO2 12/26/16 08:00 99.0 96 22 106/69 96 12/26/16 07:45 95 Nasal Cannula 2.00 12/26/16 05:07 97.8 91 16 109/69 100 12/26/16 01:03 98.1 73 18 83/55 97 12/25/16 23:00 89 12/25/16 21:07 98.2 96 18 105/60 96 12/25/16 19:58 93 Nasal Cannula 2.00 12/25/16 17:53 18 12/25/16 17:03 103 19 122/63 12/25/16 16:00 98.9 95 18 88/53 95 12/25/16 15:00 88 12/25/16 12:00 98.4 100 20 88/58 95 I/O 12/25/16 12/25/16 12/25/16 12/26/16 12/26/16 12/26/16 07:00 15:00 23:00 07:00 15:00 23:00 Intake Total 700 ml 600 ml 1440 ml Balance 700 ml 600 ml 1440 ml Intake Oral 700 ml 600 ml 240 ml IV Total 1200 ml # Voids 2 6 1 # Bowel Movements 0 0 Result Diagram: 12/24/16 1635 12/24/16 1635 Objective Remarks GENERAL: Well-developed, mild central obesity, in no acute distress. alert and orientated HEENT: Head is normocephalic without any lesions or masses noted. Facial features are symmetric. Eyes: Extraocular muscles are intact. Conjunctivae were clear. NECK: Supple without any masses. Trachea midline no deviation. No JVD, CARDIAC: Regular rhythm, regular rate. S1/S2 are heard. No murmurs gallops or rubs. LUNGS: Bilateral wheezes and diminished breath sounds noted bilaterally, no rhonchi or rales. No use of accessory muscles on inspiration or expiration. ABDOMEN: Soft, nontender. Nondistended. Bowel sounds heard in all 4 quadrants. No organomegaly or masses. Negative rebound, negative guarding EXTREMITIES: No edema, pulses are equal bilaterally. No cyanosis or clubbing NEUROLOGY: Mood and affect appear appropriate. Cranial nerves II through XII grossly intact. Moving all extremities, speech is clear Urinary Catheter: No Vascular Central Line Catheter: No A/P Problem List: (1) Sepsis ICD Code: A41.9 Status: Acute Plan: Patient met criteria on admission with leukocytosis, febrile illness, tachycardia, bilateral pneumonia Blood cultures no growth for 1 day Sputum culture pending Influenza testing, Legionella testing, streptococcal pneumonia testing, adenovirus, Bordetella, pertussis, parainfluenza 1, 2, 3, 4: RSV A and B, rhinovirus testing are all negative thus far Infectious disease was consulted for evaluation Further testing still pending from infectious disease workup Antibiotics include Levaquin IV, Rocephin IV (2) Pneumonia of both lower lobes ICD Code: J18.9 Status: Acute Plan: Dr. Sauer notified me that the patient has been intermittently ill over the last few months and has undergone multiple courses of antibiotics with continued recurrence Antibiotics per infectious disease Continue nebulizer treatments every 4 hours while awake (3) COPD (chronic obstructive pulmonary disease) ICD Code: J44.9 Status: Chronic Plan: Continue O2 subluxation maintain O2 sats greater 92% Continue nebulizer treatments every 4 hours while awake Continue incentive spirometry, Acapella Start low-dose Solu-Medrol 20 mg IV every 12 hours, secondary to increased wheezing and shortness of breath (4) Hypertension ICD Code: I10 Status: Chronic Plan: Blood pressure stable at this time. There have been episodes of low blood pressure, could be contributed to underlying sepsis If blood pressure continues to stay low, may need to decrease lisinopril dose (5) Hyperlipidemia ICD Code: E78.5 Status: Chronic Plan: Patient is usually on Lipitor 20 mg daily, however that is being held at this time due to acute illness (6) Type 2 diabetes mellitus ICD Code: E11.9 Status: Chronic Plan: Start Accu-Cheks with sliding scale insulin with anticipation that starting steroids will cause increased hyperglycemia Assessment and Plan Prophylaxis GI protection: Protonix DVT prevention: Lovenox This note was transcribed by stephen Hawk. I, Dr. Mynor Ocasio personally performed the history, physical exam, and medical decision making; and confirmed the accuracy of the information in the transcribed note. Authenticated by Dr. Mynor Ocasio on 12/26/16 at 09:51. Problem Qualifiers (1) Sepsis: Qualified Code: A41.9 - Sepsis, due to unspecified organism (2) Pneumonia of both lower lobes: Qualified Code: J18.9 - Pneumonia of both lower lobes due to infectious organism (3) COPD (chronic obstructive pulmonary disease): Qualified Code: J44.0 - Chronic obstructive pulmonary disease with acute lower respiratory infection (4) Hypertension: Qualified Code: I10 - Essential hypertension (5) Hyperlipidemia: Qualified Code: E78.2 - Mixed hyperlipidemia (6) Type 2 diabetes mellitus: Qualified Code: E11.9 - Type 2 diabetes mellitus without complication, without long-term current use of insulin Conner Hawk Dec 26, 2016 09:49 Mynor Ocasio MD Dec 26, 2016 09:51
[2016-12-26] MEDS: ENOXAPARIN SODIUM 30 MG/0.3 ML SYRINGE SQ SCH (10:06)
[2016-12-26] MEDS: PANTOPRAZOLE SOD 40 MG DELAYED RELEASE TAB PO SCH (10:07)
[2016-12-26] MEDS: GABAPENTIN 300 MG CAP PO SCH ×2 (10:07→20:41)
[2016-12-26] MEDS: LISINOPRIL 20 MG TAB PO SCH (10:07)
[2016-12-26] MEDS: VENLAFAXINE HCL XR 37.5 MG CAP PO SCH (10:07)
[2016-12-26] MEDS ORDERED: DEXTROSE 50% IN WATER 50 ML VIAL(D50) IV PRN (10:30)
[2016-12-26] MEDS ORDERED: GLUCAGON 1 MG/ML VIAL OTHER PRN (10:30)
[2016-12-26] MEDS: INSULIN ASPART SUPPLEMENTAL SCALE SQ SCH ×3 (11:00→20:50)
[2016-12-26] MEDS: LEVOFLOXACIN 750 MG PREMIX INJ 150 ML IV SCH (16:14)
[2016-12-26] MEDS: methylPREDNISolone SOD SUCC 40 MG/1 ML VIAL IV PUSH SCH ×2 (16:19→20:40)
[2016-12-26] MEDS: cefTRIAXone 1,000 MG/NS 100 ML IV SCH ×2 (20:40)
[2016-12-26] MEDS: guaiFENesin E.R. 600 MG TAB PO SCH (20:41)
[2016-12-26] MEDS: ALPRAZolam 0.5 MG TAB PO PRN (21:46)
[2016-12-26] MEDS: ACETAMINOPHEN/HYDROcodone 325 MG/5 MG TAB PO PRN (21:46)
[2016-12-27] VITALS (7 sets, daily range): BP systolic 101–124; BP diastolic 53–68; PULSE 74–96; RESP 14–22; TEMP 97.2–99.1; O2SAT 93–98
[2016-12-27 06:45] LABS: AUTOMATED NEUTROPHIL # 6.5 TH/MM3 (1.8-7.7); BASOPHIL % 0.3 % (0.0-2.0); HEMATOCRIT 24.9 % (35.0-46.0); LYMPH % 6.6 % (9.0-44.0); LYMPHOCYTE # 0.5 TH/MM3 (1.0-4.8); MEAN CELL VOLUME 70.4 FL (80.0-100.0); MEAN CORPUSCULAR HEMOGLOBIN 21.8 PG (27.0-34.0); MONO % 1.7 % (0.0-8.0); NEUT % 91.4 % (16.0-70.0); PLATELET COUNT 273 TH/MM3 (150-450); RED BLOOD COUNT 3.53 MIL/MM3 (4.00-5.30); RED CELL DISTRIBUTION WIDTH 17.2 % (11.6-17.2); WHITE BLOOD COUNT 7.1 TH/MM3 (4.0-11.0)
[2016-12-27 06:52] LABS: HEMO FLAGS AUTO DIFF
[2016-12-27 07:12] LABS: BICARBONATE 25.9 MEQ/L (21.0-32.0); MAGNESIUM 2.4 MG/DL (1.5-2.5)
[2016-12-27 07:26] LABS: SCAN/DIFF AUTO DIFF CONFIRMED
[2016-12-27] MEDS: RESP: ALBUTEROL 2.5 MG/IPRATROPIUM 0.5 MG NEB (SCH) NEB ×4 (07:46→20:15)
[2016-12-27] MEDS: methylPREDNISolone SOD SUCC 40 MG/1 ML VIAL IV PUSH SCH (08:34)
[2016-12-27] MEDS: LISINOPRIL 20 MG TAB PO SCH (08:36)
[2016-12-27] MEDS: PANTOPRAZOLE SOD 40 MG DELAYED RELEASE TAB PO SCH (08:36)
[2016-12-27] MEDS: GABAPENTIN 300 MG CAP PO SCH ×2 (08:36→20:42)
[2016-12-27] MEDS: guaiFENesin E.R. 600 MG TAB PO SCH ×2 (08:36→20:42)
[2016-12-27] MEDS: VENLAFAXINE HCL XR 37.5 MG CAP PO SCH (08:36)
[2016-12-27] MEDS: ENOXAPARIN SODIUM 30 MG/0.3 ML SYRINGE SQ SCH (08:38)
[2016-12-27] MEDS: INSULIN ASPART SUPPLEMENTAL SCALE SQ SCH ×4 (08:43→21:00)
--- NOTE | 2016-12-27 08:51 | HHI.PR ---
Subjective Remarks Written by Conner Hawk, acting as scribe for Dr. Ocasio on 12/27/16 at 08: 45. Patient seen and examined today by Dr. Ocasio. Patient indicates that her breathing has improved minimally. She has been taken off oxygen with O2 sats 93 %. Patient states that she still getting dyspneic on exertion. Wheezing has improved Objective Vitals Vital Signs Date Time Temp Pulse Resp B/P Pulse Ox O2 Delivery O2 Flow Rate FiO2 12/27/16 08:15 93 21 12/27/16 05:00 97.2 87 14 106/68 95 12/27/16 00:23 98.4 91 14 115/58 96 12/26/16 23:00 83 12/26/16 20:32 99.9 101 14 121/66 95 12/26/16 19:05 94 21 12/26/16 16:00 100.1 106 18 142/77 94 12/26/16 12:00 98.6 97 20 111/73 96 12/26/16 11:26 99 Nasal Cannula 2.00 I/O 12/26/16 12/26/16 12/26/16 12/27/16 12/27/16 12/27/16 07:00 15:00 23:00 07:00 15:00 23:00 Intake Total 750 ml Balance 750 ml Intake Oral 750 ml # Voids 1 3 2 1 # Bowel Movements 0 Result Diagram: 12/27/1638 12/27/16537 Objective Remarks GENERAL: Well-developed, mild central obesity, in no acute distress. alert and orientated HEENT: Head is normocephalic without any lesions or masses noted. Facial features are symmetric. Eyes: Extraocular muscles are intact. Conjunctivae were clear. NECK: Supple without any masses. Trachea midline no deviation. No JVD, CARDIAC: Regular rhythm, regular rate. S1/S2 are heard. No murmurs gallops or rubs. LUNGS: Scattered Bilateral wheezes and diminished breath sounds noted bilaterally, no rhonchi or rales. No use of accessory muscles on inspiration or expiration. ABDOMEN: Soft, nontender. Nondistended. Bowel sounds heard in all 4 quadrants. No organomegaly or masses. Negative rebound, negative guarding EXTREMITIES: No edema, pulses are equal bilaterally. No cyanosis or clubbing NEUROLOGY: Mood and affect appear appropriate. Cranial nerves II through XII grossly intact. Moving all extremities, speech is clear Urinary Catheter: No Vascular Central Line Catheter: No A/P Problem List: (1) Sepsis ICD Code: A41.9 Status: Acute Plan: Patient met criteria on admission with leukocytosis, febrile illness, tachycardia, bilateral pneumonia Patient is still with low-grade fever 100.1 Blood cultures no growth for 2 day Sputum culture with heavy growth normal respiratory emily Influenza testing, Legionella testing, streptococcal pneumonia testing, adenovirus, Bordetella, pertussis, parainfluenza 1, 2, 3, 4: RSV A and B, rhinovirus testing are all negative thus far Infectious disease following the patient Further testing still pending from infectious disease workup Antibiotics include Levaquin IV, Rocephin IV (2) Pneumonia of both lower lobes ICD Code: J18.9 Status: Acute Plan: Dr. Sauer notified me that the patient has been intermittently ill over the last few months and has undergone multiple courses of antibiotics with continued recurrence Antibiotics per infectious disease Continue nebulizer treatments every 4 hours while awake (3) COPD (chronic obstructive pulmonary disease) ICD Code: J44.9 Status: Chronic Plan: Continue O2 subluxation maintain O2 sats greater 92% Continue nebulizer treatments every 4 hours while awake Continue incentive spirometry, Acapella Solu-Medrol 20 mg IV every 12 hours, will transition to by mouth prednisone since wheezing and respiratory status improving (4) Hypertension ICD Code: I10 Status: Chronic Plan: Blood pressure stable at this time. Lisinopril 40 mg daily (5) Hyperlipidemia ICD Code: E78.5 Status: Chronic Plan: Patient is usually on Lipitor 20 mg daily, however that is being held at this time due to acute illness (6) Type 2 diabetes mellitus ICD Code: E11.9 Status: Chronic Plan: Accu-Cheks with sliding scale insulin added due to hyperglycemia secondary to steroid use Assessment and Plan This note was transcribed by stephen Hawk. I, Dr. Mynor Ocasio personally performed the history, physical exam, and medical decision making; and confirmed the accuracy of the information in the transcribed note. Authenticated by Dr. Mynor Ocasio on 12/27/16 at 08:45. Prophylaxis GI protection: Protonix DVT prevention: Lovenox Problem Qualifiers (1) Sepsis: Qualified Code: A41.9 - Sepsis, due to unspecified organism (2) Pneumonia of both lower lobes: Qualified Code: J18.9 - Pneumonia of both lower lobes due to infectious organism (3) COPD (chronic obstructive pulmonary disease): Qualified Code: J44.0 - Chronic obstructive pulmonary disease with acute lower respiratory infection (4) Hypertension: Qualified Code: I10 - Essential hypertension (5) Hyperlipidemia: Qualified Code: E78.2 - Mixed hyperlipidemia (6) Type 2 diabetes mellitus: Qualified Code: E11.9 - Type 2 diabetes mellitus without complication, without long-term current use of insulin Conner Hawk Dec 27, 2016 08:51 Mynor Ocasio MD Dec 27, 2016 08:51
[2016-12-27] MEDS: predniSONE 10 MG TAB PO SCH (09:00)
--- NOTE | 2016-12-27 15:07 | HHI.IDPN ---
Subjective Subjective Remarks Notes reviewed One low grade temps yesterday afternoon Feels 25% better Still no sputum production Breathing better Good sats on RA when she ambulated Legio and pneumo Ag negative INfluenza negative BC negative Sputum NF WBC down to normal UA ok Respiratory panel Ag all negative Antibiotics Rocephin Levaquin Lines PIV Past Medical History Insomnia Type 2 diabetes well controlled without medications. Hyperlipidemia Peripheral neuropathy Hypertension Gastroesophageal reflux disease Sebaceous cyst Hidradenitis History of bronchitis. Santizo's esophagus Diverticulosis Past Surgical History Right knee replacement in July 2016 Bilateral cataract surgery Lumbar disk surgery Allergies: Coded Allergies: Penicillin (Verified Allergy, Severe, SWELLING HIVES ITCHING, 12/22/16) Objective . Vital Signs Date Time Temp Pulse Resp B/P Pulse Ox O2 Delivery O2 Flow Rate FiO2 12/27/16 12:00 97.6 84 16 115/65 96 12/27/16 08:15 93 21 12/27/16 08:00 97.6 74 18 101/53 94 12/27/16 05:00 97.2 87 14 106/68 95 12/27/16 00:23 98.4 91 14 115/58 96 12/26/16 23:00 83 12/26/16 20:32 99.9 101 14 121/66 95 12/26/16 19:05 94 21 12/26/16 16:00 100.1 106 18 142/77 94 12/26/16 12/26/16 12/27/16 15:00 23:00 07:00 Intake Total 750 ml Balance 750 ml Intake Oral 750 ml # Voids 3 2 1 # Bowel Movements 0 . Laboratory Tests Test 12/27/16 05:38 White Blood Count 7.1 TH/MM3 Red Blood Count 3.53 MIL/MM3 Hemoglobin 7.7 GM/DL Hematocrit 24.9 % Mean Corpuscular Volume 70.4 FL Mean Corpuscular Hemoglobin 21.8 PG Mean Corpuscular Hemoglobin 31.0 % Concent Red Cell Distribution Width 17.2 % Platelet Count 273 TH/MM3 Mean Platelet Volume 8.7 FL Neutrophils (%) (Auto) 91.4 % Lymphocytes (%) (Auto) 6.6 % Monocytes (%) (Auto) 1.7 % Eosinophils (%) (Auto) 0.0 % Basophils (%) (Auto) 0.3 % Neutrophils # (Auto) 6.5 TH/MM3 Lymphocytes # (Auto) 0.5 TH/MM3 Monocytes # (Auto) 0.1 TH/MM3 Eosinophils # (Auto) 0.0 TH/MM3 Basophils # (Auto) 0.0 TH/MM3 CBC Comment AUTO DIFF Differential Comment AUTO DIFF CONFIRMED Laboratory Tests Test 12/27/16 05:38 Sodium Level 144 MEQ/L Potassium Level 4.0 MEQ/L Chloride Level 109 MEQ/L Carbon Dioxide Level 25.9 MEQ/L Anion Gap 9 MEQ/L Blood Urea Nitrogen 10 MG/DL Creatinine 0.64 MG/DL Estimat Glomerular Filtration 92 ML/MIN Rate Random Glucose 257 MG/DL Calcium Level 8.5 MG/DL Magnesium Level 2.4 MG/DL Microbiology Date/Time Procedure Status Source Growth 12/24/16 16:48 Aerobic Blood Culture - Preliminary Resulted Blood Peripheral NO GROWTH IN 3 DAYS 12/24/16 16:48 Anaerobic Blood Culture - Preliminary Resulted Blood Peripheral NO GROWTH IN 3 DAYS 12/24/16 16:48 Aerobic Blood Culture - Preliminary Resulted Blood Peripheral NO GROWTH IN 3 DAYS 12/24/16 16:48 Anaerobic Blood Culture - Preliminary Resulted Blood Peripheral NO GROWTH IN 3 DAYS 12/25/16 16:40 Gram Stain - Final Complete Sputum Expectorated Sputum 12/25/16 16:40 Sputum Culture - Final Complete Sputum Expectorated Sputum HEAVY GROWTH NORMAL RESPIRATORY KISHA 12/25/16 16:48 Acid Fast Stain - Final Resulted Sputum Expectorated Sputum NO ACID FAST BACILLI SEEN 12/25/16 16:48 Mycobacterial Culture Resulted Sputum Expectorated Sputum Pending 12/25/16 18:00 Legionella Antigen - Final Complete Urine Clean Catch PRESUMPTIVE NEGATIVE FOR LEGIONELLA P... 12/25/16 18:00 Streptococcus pneumoniae Antigen (M - Final Complete Urine Clean Catch PRESUMPTIVE NEGATIVE FOR STREPTOCOCCU... 12/26/16 00:35 Influenza Types A,B Antigen (SAJI) - Final Complete Nasal Washing NEGATIVE FOR FLU A AND B ANTIGEN.... Imaging Chest CT 12/24/16 0000 Signed Impressions: Service Date/Time: December 18:15 - CONCLUSION: 1. Dense consolidation in both lower lobes right greater than left consistent with the history of pneumonia. 2. Large cystic structure in the left lobe of the liver. Jose Gonsalez MD Physical Exam GENERAL: awake and alert, not in respiratory distress. SKIN: Warm and dry. No generalized rash, no ecchymoses and no evidence of embolic lesions. HEAD: Atraumatic. Normocephalic. No temporal wasting, or tenderness. EYES: [place] conjunctiva. No petechia or hemorrhage. Pupils equal, round and reactive to light. Extraocular movements full and intact. No scleral icterus. No injection or drainage. EARS, NOSE AND THROAT: Nose without bleeding or purulent nasal discharge. No sinus tenderness. Mucous membranes pink and moist. No oral lesions noted. No exudate. No oral thrush. NECK: Trachea midline. Supple and not tender, no meningeal signs CARDIOVASCULAR: Regular rate and rhythm. No murmurs, rubs or gallops heard RESPIRATORY: Decreased BS at bases, seem worse on L than on R. Breath sounds equal bilaterally. No rales, wheezing or rhonchi ABDOMEN: Soft, non-tender, nondistended. Bowel sounds present and normoactive. No guarding. No rebound. No organomegaly. EXTREMITIES: No clubbing, cyanosis, or edema.No joint effusion, has good ROM. No calf tenderness. Well perfused and warm. NEUROLOGICAL: Grossly non-focal. PSYCHIATRIC: Normal affect, calm and cooperative. LINE: No evidence of infection Assessment & Plan Remarks IMPRESSION Bilateral pneumonia Previous episodes of bronchitis, likely COPD exacerbation - not known if with PNA, CXR not done, but symptoms sound more of bronchitis COPD,. with previous Hx heavy smoking RECOMMENDATION Stop Rocephin Continue Levaquin for with usual CAP pathogens and atypical coverage Follow C/S CXR in AM Follow temps Monitor progress Explained plan to the patient Miesha Yancey MD Dec 27, 2016 15:07
[2016-12-27] MEDS: LEVOFLOXACIN 750 MG PREMIX INJ 150 ML IV SCH (17:48)
[2016-12-27] MEDS: ALPRAZolam 0.5 MG TAB PO PRN (21:53)
[2016-12-28] VITALS (9 sets, daily range): BP systolic 124–148; BP diastolic 64–81; PULSE 90–101; RESP 16–20; TEMP 95.8–99.5; O2SAT 92–99
[2016-12-28] MEDS ORDERED: BENZONATATE 100 MG CAP PO PRN
--- NOTE | 2016-12-28 06:55 | HHI.FPPN ---
Subjective Remarks FEeling better, still SOB, no fever x more than 24 hours. No sputum, still some cough. Has been walking in the halls. NO BM. Denies bleeding. Notes some sore throat and right neck. No n/v. Fair appetite. Discussed her anemia. She would like to see conductor sleeping car. Concerned with having been told at urgent care that she has COPD and that both parents had lung cancer. Objective Vitals Vital Signs Date Time Temp Pulse Resp B/P Pulse Ox O2 Delivery O2 Flow Rate FiO2 12/28/16 05:10 98.1 96 18 148/81 99 12/28/16 00:18 98.9 98 20 140/73 93 12/27/16 21:28 99.1 96 22 104/61 98 12/27/16 16:00 98.9 86 20 124/64 93 12/27/16 12:00 97.6 84 16 115/65 96 12/27/16 08:15 93 21 12/27/16 08:00 97.6 74 18 101/53 94 12/27/16 08:00 85 I/O 12/27/16 12/27/16 12/27/16 12/28/16 12/28/16 12/28/16 07:00 15:00 23:00 07:00 15:00 23:00 Intake Total 750 ml Balance 750 ml Intake Oral 750 ml # Voids 1 5 3 # Bowel Movements 0 Result Diagram: 12/27/1638 12/27/16537 Objective Remarks Gen: wdwf on nasal CPAP. no distress, laying supine, breathing calmly, seems more energetic than last week, able to take off CPAP and talk without difficulty HEENT: small right submandibular LN, no posterior erythema or drainage, tongue wnl CV: RRR, no longer tachycardic Lungs:good air movement, bilateral lower rhonchi, no wheezing Abd: soft, minimally tender, normal BS, notes she needs to have a BM (declines meds to help) Ext: thin, no edema Urinary Catheter: No Vascular Central Line Catheter: No A/P Problem List: (1) Sepsis Status: Acute Plan: Elevated WBC, fever to 102, tachycardia, bilateral Lower lobe pneumonia on admit. lactic acid was wnl. Blood and sputum cultures were negative. Overall improving. (2) Pneumonia of both lower lobes Status: Acute Plan: She has been ill intermittantly since October with complete resolution. She has been on cipro and 2 courses of zithromax along with steroid courses without improvement. Appreciate ID help. Will continue with the levaquin. She is now off the IV steroids and on PO steroids. She notes she feels better but not great. Fever now resolved. Pending CXR this AM. O2 home walk test was wnl with O2 sat 96%. Likely discharge to home soon but advised it will likely take her a month to regain her full level of activity. she notes she has been walking in the halls with some fatigue but no major distress. (3) COPD (chronic obstructive pulmonary disease) Status: Chronic Plan: She wasn't symptomatic until being ill. She has been on breo for the past month with some improvement. Continuing at this time. She has former tobacco use. Advised we really need to get her better from the pneumonia before we can tell the extent of COPD involvement. She would like to see conductor sleeping car as outpatient. (4) Hyperlipidemia Status: Chronic Plan: She has been on lipitor 20mg per day. I am holding this for now due to acute infection. will restart when she has completed the antibiotics. (5) Hypertension Status: Chronic Plan: She has been well controlled with NIRALI-I. Renal function is good. Continue for now but adjust if BPs go low with infection. (6) Type 2 diabetes mellitus Status: Chronic Plan: She has been on janumet 50/500mg 2 tabs PO daily for some time. I am holding it now with acute infection. she is clinically doing well. With steroids over the weekend her sugars elías to the 300 raghav. Better now that she is on oral steroids. If her renal function is good on this AM labs, will restart her janumet. Problem Qualifiers (1) Sepsis: Qualified Code: A41.9 - Sepsis, due to unspecified organism (2) Pneumonia of both lower lobes: Qualified Code: J18.9 - Pneumonia of both lower lobes due to infectious organism (3) COPD (chronic obstructive pulmonary disease): Qualified Code: J44.0 - Chronic obstructive pulmonary disease with acute lower respiratory infection (4) Hyperlipidemia: Qualified Code: E78.2 - Mixed hyperlipidemia (5) Hypertension: Qualified Code: I10 - Essential hypertension (6) Type 2 diabetes mellitus: Qualified Code: E11.9 - Type 2 diabetes mellitus without complication, without long-term current use of insulin Iram Sauer MD Dec 28, 2016 06:55
--- NOTE | 2016-12-28 06:57 | HHI.PR ---
Addendum to Inpatient Note Addendum Reason: Additional Documentation Additional Information Anemia--discussed drop in hbg with patient. Likely due to infection and IVF. Rechecking today. NO s/s of bleeding. Check stool guaiac if able (she hasn't had BM). Iram Nunn MD Dec 28, 2016 06:57
[2016-12-28] MEDS: RESP: ALBUTEROL 2.5 MG/IPRATROPIUM 0.5 MG NEB (SCH) NEB ×4 (07:55→19:43)
[2016-12-28] MEDS: predniSONE 10 MG TAB PO SCH (08:05)
[2016-12-28] MEDS: VENLAFAXINE HCL XR 37.5 MG CAP PO SCH (08:05)
[2016-12-28] MEDS: GABAPENTIN 300 MG CAP PO SCH ×2 (08:05→21:36)
[2016-12-28] MEDS: guaiFENesin E.R. 600 MG TAB PO SCH ×2 (08:05→21:36)
[2016-12-28] MEDS: PANTOPRAZOLE SOD 40 MG DELAYED RELEASE TAB PO SCH (08:05)
[2016-12-28] MEDS: ENOXAPARIN SODIUM 30 MG/0.3 ML SYRINGE SQ SCH (08:06)
[2016-12-28] MEDS: LISINOPRIL 20 MG TAB PO SCH (08:06)
[2016-12-28] MEDS: INSULIN ASPART SUPPLEMENTAL SCALE SQ SCH ×4 (08:15→21:41)
[2016-12-28 09:12] LABS: AUTOMATED NEUTROPHIL # 11.9 TH/MM3 (1.8-7.7); BASOPHIL # 0.1 TH/MM3 (0-0.2); BASOPHIL % 0.4 % (0.0-2.0); EOSINOPHIL # 0.1 TH/MM3 (0-0.4); EOSINOPHIL % 0.6 % (0.0-4.0); HEMATOCRIT 25.5 % (35.0-46.0); LYMPH % 10.9 % (9.0-44.0); LYMPHOCYTE # 1.5 TH/MM3 (1.0-4.8); MEAN CELL VOLUME 69.5 FL (80.0-100.0); MEAN CORPUSCULAR HEMOGLOBIN 21.7 PG (27.0-34.0); MEAN CORPUSCULAR HGB CONC 31.1 % (32.0-36.0); MONO % 1.9 % (0.0-8.0); NEUT % 86.2 % (16.0-70.0); PLATELET COUNT 347 TH/MM3 (150-450); RED BLOOD COUNT 3.66 MIL/MM3 (4.00-5.30); RED CELL DISTRIBUTION WIDTH 17.2 % (11.6-17.2); WHITE BLOOD COUNT 13.9 TH/MM3 (4.0-11.0)
[2016-12-28 09:30] LABS: HEMO FLAGS AUTO DIFF
[2016-12-28 10:11] LABS: ALKALINE PHOSPHATASE 75 U/L (45-117); ALT (GPT) 45 U/L (10-53); ANION GAP 8 MEQ/L (5-15); AST (GOT) 25 U/L (15-37); BICARBONATE 30.4 MEQ/L (21.0-32.0); BLOOD UREA NITROGEN 15 MG/DL (7-18); CHLORIDE 108 MEQ/L (98-107); GLOMERULAR FILTRATION RATE 82 ML/MIN (>89); SODIUM (NA) 146 MEQ/L (136-145); TOTAL BILIRUBIN ADULT 0.3 MG/DL (0.2-1.0)
[2016-12-28 10:34] LABS: PLATELET ESTIMATE SMEAR NORMAL (NORMAL); PLATELET MORPHOLOGY NORMAL (NORMAL); SCAN/DIFF AUTO DIFF CONFIRMED
[2016-12-28 10:36] LABS: POTASSIUM 2.9 MEQ/L (3.5-5.1)
[2016-12-28] MEDS ORDERED: POTASSIUM CHLORIDE 20 MEQ CONTROLLED RELEASE TAB PO ONE (11:00)
--- NOTE | 2016-12-28 15:24 | RADRPT ---
EXAM DATE/TIME: 12/28/2016 13:00 [facility] COMPARISON: CHEST SINGLE AP, December 22, 2016, 7:39. CT THORAX W/O CONTRAST, December 24, 2016, 18:15. INDICATIONS : Follow up pneumonia MEDICAL HISTORY : Hypertension. Hypercholesterolemia. Chronic obstructive pulmonary disease. Sleep Apnea SURGICAL HISTORY : None. ENCOUNTER: Subsequent ACUITY: 4 - 6 days PAIN SCORE: 0/10 LOCATION: Bilateral chest FINDINGS: Bilateral posterior lower lobe airspace consolidation appear largely unchanged from recent CT exam. C ardiomediastinal contours are within normal limits. Bony thorax is intact. CONCLUSION: 1. Grossly stable bilateral posterior lower lobe airspace consolidation. The differential considerati ons include aspiration versus pneumonia. Consider follow up examination following completion of appro priate course of treatment. Sp Rivera MD on December 28, 2016 at 15:19 Board Certified Radiologist. This report was verified electronically.
--- NOTE | 2016-12-28 15:27 | HHI.IDPN ---
Subjective Subjective Remarks Notes reviewed Temps ok Feeling better Off O2, sats ok Repeat CXR looks stable Still with non-productive cough Breathing better Good sats on RA when she ambulated Legio and pneumo Ag negative INfluenza negative BC negative Sputum NF WBC down to normal UA ok Respiratory panel Ag all negative Antibiotics Levaquin Lines PIV Past Medical History Insomnia Type 2 diabetes well controlled without medications. Hyperlipidemia Peripheral neuropathy Hypertension Gastroesophageal reflux disease Sebaceous cyst Hidradenitis History of bronchitis. Santizo's esophagus Diverticulosis Past Surgical History Right knee replacement in July 2016 Bilateral cataract surgery Lumbar disk surgery Allergies: Coded Allergies: Penicillin (Verified Allergy, Severe, SWELLING HIVES ITCHING, 12/22/16) Objective . Vital Signs Date Time Temp Pulse Resp B/P Pulse Ox O2 Delivery O2 Flow Rate FiO2 12/28/16 12:09 99.5 95 17 145/80 97 12/28/16 08:07 96.8 90 18 140/80 97 12/28/16 07:57 94 21 12/28/16 05:10 98.1 96 18 148/81 99 12/28/16 00:18 98.9 98 20 140/73 93 12/27/16 21:28 99.1 96 22 104/61 98 12/27/16 16:00 98.9 86 20 124/64 93 12/27/16 12/27/16 12/28/16 15:00 23:00 07:00 Intake Total 750 ml Balance 750 ml Intake Oral 750 ml # Voids 5 4 # Bowel Movements 0 . Laboratory Tests Test 12/27/16 12/28/16 05:38 07:50 White Blood Count 7.1 TH/MM3 13.9 TH/MM3 Red Blood Count 3.53 MIL/MM3 3.66 MIL/MM3 Hemoglobin 7.7 GM/DL 7.9 GM/DL Hematocrit 24.9 % 25.5 % Mean Corpuscular Volume 70.4 FL 69.5 FL Mean Corpuscular Hemoglobin 21.8 PG 21.7 PG Mean Corpuscular Hemoglobin 31.0 % 31.1 % Concent Red Cell Distribution Width 17.2 % 17.2 % Platelet Count 273 TH/MM3 347 TH/MM3 Mean Platelet Volume 8.7 FL 8.0 FL Neutrophils (%) (Auto) 91.4 % 86.2 % Lymphocytes (%) (Auto) 6.6 % 10.9 % Monocytes (%) (Auto) 1.7 % 1.9 % Eosinophils (%) (Auto) 0.0 % 0.6 % Basophils (%) (Auto) 0.3 % 0.4 % Neutrophils # (Auto) 6.5 TH/MM3 11.9 TH/MM3 Lymphocytes # (Auto) 0.5 TH/MM3 1.5 TH/MM3 Monocytes # (Auto) 0.1 TH/MM3 0.3 TH/MM3 Eosinophils # (Auto) 0.0 TH/MM3 0.1 TH/MM3 Basophils # (Auto) 0.0 TH/MM3 0.1 TH/MM3 CBC Comment AUTO DIFF AUTO DIFF Differential Comment AUTO DIFF AUTO DIFF CONFIRMED CONFIRMED Platelet Estimate NORMAL Platelet Morphology Comment NORMAL Laboratory Tests Test 12/27/16 12/28/16 12/28/16 05:38 07:50 14:20 Sodium Level 144 MEQ/L 146 MEQ/L Potassium Level 4.0 MEQ/L 2.9 MEQ/L 3.8 MEQ/L Chloride Level 109 MEQ/L 108 MEQ/L Carbon Dioxide Level 25.9 MEQ/L 30.4 MEQ/L Anion Gap 9 MEQ/L 8 MEQ/L Blood Urea Nitrogen 10 MG/DL 15 MG/DL Creatinine 0.64 MG/DL 0.71 MG/DL Estimat Glomerular Filtration 92 ML/MIN 82 ML/MIN Rate Random Glucose 257 MG/DL 100 MG/DL Calcium Level 8.5 MG/DL 9.0 MG/DL Magnesium Level 2.4 MG/DL Total Bilirubin 0.3 MG/DL Aspartate Amino Transf 25 U/L (AST/SGOT) Alanine Aminotransferase 45 U/L (ALT/SGPT) Alkaline Phosphatase 75 U/L Total Protein 6.2 GM/DL Albumin 2.2 GM/DL Microbiology Date/Time Procedure Status Source Growth 12/25/16 16:40 Gram Stain - Final Complete Sputum Expectorated Sputum 12/25/16 16:40 Sputum Culture - Final Complete Sputum Expectorated Sputum HEAVY GROWTH NORMAL RESPIRATORY KISHA 12/25/16 16:48 Acid Fast Stain - Final Resulted Sputum Expectorated Sputum NO ACID FAST BACILLI SEEN 12/25/16 16:48 Mycobacterial Culture Resulted Sputum Expectorated Sputum Pending 12/25/16 18:00 Legionella Antigen - Final Complete Urine Clean Catch PRESUMPTIVE NEGATIVE FOR LEGIONELLA P... 12/25/16 18:00 Streptococcus pneumoniae Antigen (M - Final Complete Urine Clean Catch PRESUMPTIVE NEGATIVE FOR STREPTOCOCCU... 12/26/16 00:35 Influenza Types A,B Antigen (SAJI) - Final Complete Nasal Washing NEGATIVE FOR FLU A AND B ANTIGEN.... 12/28/16 13:50 Stool Occult Blood (SAJI) Received Stool Stool Pending Imaging Chest CT 12/24/16 0000 Signed Impressions: Service Date/Time: , December 24, 2016 18:15 - CONCLUSION: 1. Dense consolidation in both lower lobes right greater than left consistent with the history of pneumonia. 2. Large cystic structure in the left lobe of the liver. Jose Gonsalez MD Physical Exam GENERAL: awake and alert, not in respiratory distress. SKIN: Warm and dry. No generalized rash, no ecchymoses and no evidence of embolic lesions. HEAD: Atraumatic. Normocephalic. No temporal wasting, or tenderness. EYES: [place] conjunctiva. No petechia or hemorrhage. Extraocular movements full and intact. No scleral icterus. No injection or drainage. EARS, NOSE AND THROAT: Nose without bleeding or purulent nasal discharge. No sinus tenderness. Mucous membranes pink and moist. NECK: Trachea midline. Supple and not tender, no meningeal signs CARDIOVASCULAR: Regular rate and rhythm. No murmurs, rubs or gallops heard RESPIRATORY: Decreased BS at bases. ABDOMEN: Soft, non-tender, nondistended. Bowel sounds present and normoactive. No guarding. No rebound. No organomegaly. EXTREMITIES: No clubbing, cyanosis, or edema.No joint effusion, has good ROM. No calf tenderness. Well perfused and warm. NEUROLOGICAL: Grossly non-focal. PSYCHIATRIC: Normal affect, calm and cooperative. LINE: No evidence of infection Assessment & Plan Remarks IMPRESSION Bilateral pneumonia Previous episodes of bronchitis, likely COPD exacerbation - not known if with PNA, CXR not done, but symptoms sound more of bronchitis COPD,. with previous Hx heavy smoking RECOMMENDATION Continue Levaquin, change to oral - give 10 days oral Levaquin If stable, ok to D/C tomorrow from ID standpoint Follow up CXR or CT in several months to follow clearing of infiltrates Explained plan to the patient I will sign off Miesha Yancey MD Dec 28, 2016 15:27
[2016-12-28] MEDS ORDERED: LEVOFLOXACIN 750 MG TAB PO SCH (16:00)
[2016-12-28] MEDS: ALPRAZolam 0.5 MG TAB PO PRN (21:42)
[2016-12-29] VITALS: BP 112/58; PULSE 90; RESP 18; TEMP 99.4; O2SAT 96
[2016-12-29 04:00] VITALS: BP 137/80; PULSE 98; RESP 16; TEMP 98.5; O2SAT 96
[2016-12-29] MEDS: INSULIN ASPART SUPPLEMENTAL SCALE SQ SCH (06:23)
[2016-12-29] MEDS ORDERED: guaiFENesin ER PO (06:53)
[2016-12-29] MEDS ORDERED: PRED10 PO (06:53)
[2016-12-29] MEDS ORDERED: FLUT1INH7 INH (06:53)
[2016-12-29] MEDS ORDERED: LEVA750T9 PO (06:53)
[2016-12-29] MEDS ORDERED: BENZ100 PO (06:53)
--- NOTE | 2016-12-29 07:00 | HHI.DS ---
Discharge Summary Admission Date Dec 24, 2016 at 15:39 Discharge Date: Dec 29, 2016 Admitting Diagnosis bilateral lower lobe pneumonia with sepsis (1) Sepsis Diagnosis: Principal Plan: Elevated WBC, fever to 102, tachycardia, bilateral Lower lobe pneumonia on admit. lactic acid was wnl. Blood and sputum cultures were negative. Overall improving/resolved. (2) Pneumonia of both lower lobes Diagnosis: Principal Plan: She has been ill intermittantly since October with complete resolution. She has been on cipro and 2 courses of zithromax along with steroid courses without improvement. Appreciate ID help. Will continue with the levaquin. She is now off the IV steroids and on PO steroids. She notes she feels better but not great. Fever now resolved. f/u CXR stable without progressive worsening. O2 home walk test was wnl with O2 sat 96%. discharge to home today. advised it will likely take her a month to regain her full level of activity. she notes she has been walking in the halls with some fatigue but no major distress. (3) COPD (chronic obstructive pulmonary disease) Diagnosis: Secondary Plan: She wasn't symptomatic until being ill. She has been on breo for the past month with some improvement. Continuing at this time. She has former tobacco use. Advised we really need to get her better from the pneumonia before we can tell the extent of COPD involvement. She would like to see broomcorn sorter as outpatient. (4) Hyperlipidemia Diagnosis: Secondary Plan: She has been on lipitor 20mg per day. I am holding this for now due to acute infection. will restart when she has completed the antibiotics. Patient advised. also hold the calcium until she has completed the antibiotics. (5) Hypertension Diagnosis: Secondary Plan: She has been well controlled with NIRALI-I. Renal function is good. continue home meds. (6) Type 2 diabetes mellitus Diagnosis: Secondary Plan: She has been on janumet 50/500mg 2 tabs PO daily for some time. I held it during hospitalization with acute infection. she is clinically doing well. With steroids over the weekend her sugars elías to the 300 raghav. Better now that she is on oral steroids. She will restart the janumet and will not be on insulin at home at this time. (7) Anemia Diagnosis: Secondary Plan: Likely due to illness. Stool guaiac was negative and not symptomatic other than fatigue. Will f/u in a few weeks with labs. (8) Hypokalemia Diagnosis: Secondary Plan: replaced PO and did well. Consultants Dr. Yancey--Infectious disease Brief History 71 yo WF who has been intermittantly sick since October with upper respiratory infections really worsened in the days prior to hospitalization with fever, lethergy, malaise. She had mild hypoxia at 87% after admission but improved rapidly. CBC/BMP: 12/28/16 0750 12/28/16 1420 Significant Findings Laboratory Tests Test 12/27/16 12/28/16 05:38 07:50 Red Blood Count 3.53 MIL/MM3 3.66 MIL/MM3 (4.00-5.30) (4.00-5.30) Hemoglobin 7.7 GM/DL 7.9 GM/DL (11.6-15.3) (11.6-15.3) Hematocrit 24.9 % 25.5 % (35.0-46.0) (35.0-46.0) Mean Corpuscular Volume 70.4 FL 69.5 FL (80.0-100.0) (80.0-100.0) Mean Corpuscular Hemoglobin 21.8 PG 21.7 PG (27.0-34.0) (27.0-34.0) Mean Corpuscular Hemoglobin 31.0 % 31.1 % Concent (32.0-36.0) (32.0-36.0) Neutrophils (%) (Auto) 91.4 % 86.2 % (16.0-70.0) (16.0-70.0) Lymphocytes (%) (Auto) 6.6 % (9.0-44.0) Lymphocytes # (Auto) 0.5 TH/MM3 (1.0-4.8) Chloride Level 109 MEQ/L 108 MEQ/L (98-107) (98-107) Random Glucose 257 MG/DL (74-106) White Blood Count 13.9 TH/MM3 (4.0-11.0) Neutrophils # (Auto) 11.9 TH/MM3 (1.8-7.7) Sodium Level 146 MEQ/L (136-145) Potassium Level 2.9 MEQ/L (3.5-5.1) Estimat Glomerular Filtration 82 ML/MIN (>89) Rate Total Protein 6.2 GM/DL (6.4-8.2) Albumin 2.2 GM/DL (3.4-5.0) PE at Discharge Gen: wdwf on nasal CPAP. no distress, laying supine, breathing calmly, seems more energetic than last week, able to take off CPAP and talk without difficulty HEENT: small right submandibular LN, no posterior erythema or drainage, tongue wnl CV: RRR, no longer tachycardic Lungs:good air movement, bilateral lower rhonchi, no wheezing Abd: soft, minimally tender, normal BS, notes she needs to have a BM (declines meds to help) Ext: thin, no edema Hospital Course she showed gradual improvement in her symptoms after Vanco and Rocephin on admit that changed to Rocephin and levaquin and then just levaquin for discharge. Appreciate ID consult. Her sputum cultures and blood testing did not determine an infective agent during her hospitalization. She also developed wheezing and was put back on steroids which elevated her blood sugars requiring insulin sliding scale. She will go home on her janumet as sugars are better on the oral rather than IV steroids. Encouraged to change her tubing for her CPAP and clean it well when done with her antibiotics. Pt Condition on Discharge: Good Discharge Disposition: Discharge Home Discharge Instructions DIET: Follow Instructions for: Heart Healthy Diet Activities you can perform: Regular-No Restrictions Iram Sauer MD Dec 29, 2016 07:00
[2016-12-29] MEDS: GABAPENTIN 300 MG CAP PO SCH (07:28)
[2016-12-29] MEDS: guaiFENesin E.R. 600 MG TAB PO SCH (07:28)
[2016-12-29] MEDS: VENLAFAXINE HCL XR 37.5 MG CAP PO SCH (07:28)
[2016-12-29] MEDS: PANTOPRAZOLE SOD 40 MG DELAYED RELEASE TAB PO SCH (07:28)
[2016-12-29] MEDS: predniSONE 10 MG TAB PO SCH (07:28)
[2016-12-29] MEDS: LISINOPRIL 20 MG TAB PO SCH (07:28)
[2016-12-29] MEDS: ENOXAPARIN SODIUM 30 MG/0.3 ML SYRINGE SQ SCH (07:29)
[2016-12-29 07:30] VITALS: PULSE 98
[2016-12-29 08:36] VITALS: BP 142/84; PULSE 98; RESP 19; TEMP 98.9; O2SAT 93
[2016-12-30 23:54] LABS: LEGIONELLA PNEUMO 1 IGG <1:64 titer (< 1:64); LEGIONELLA PNEUMO 1 IGM <1:64 titer (< 1:64); LEGIONELLA PNEUMO 2 IGG <1:64 titer (< 1:64); LEGIONELLA PNEUMO 2 IGM <1:64 titer (< 1:64); LEGIONELLA PNEUMO 3 IGG <1:64 titer (< 1:64); LEGIONELLA PNEUMO 3 IGM <1:64 titer (< 1:64); LEGIONELLA PNEUMO 4 IGG <1:64 titer (< 1:64); LEGIONELLA PNEUMO 4 IGM <1:64 titer (< 1:64); LEGIONELLA PNEUMO 5 IGG <1:64 titer (< 1:64); LEGIONELLA PNEUMO 5 IGM <1:64 titer (< 1:64); LEGIONELLA PNEUMO 6 IGG <1:64 titer (< 1:64); LEGIONELLA PNEUMO 6 IGM <1:64 titer (< 1:64)
[2016-12-31 03:52] LABS: C PNEUMO IGA 1:32 (()); C PNEUMO IGM <1:10 (())
== END 2016-12-29 09:29 | disposition home or self-care (01) | DRG 871 ==
LOC: PH3A 15:39
PROVIDERS: ADMIT Family Medicine; ATTEND Family Medicine
DX: A41.9 Sepsis, unspecified organism (principal); J18.9 Pneumonia, unspecified organism; E11.42 Type 2 diabetes mellitus with diabetic polyneuropathy; J44.0 Chronic obstructive pulmonary disease with (acute) lower respiratory infection; K22.70 Barrett's esophagus without dysplasia; J44.1 Chronic obstructive pulmonary disease with (acute) exacerbation; I10 Essential (primary) hypertension; K21.9 Gastro-esophageal reflux disease without esophagitis; D64.9 Anemia, unspecified; K57.90 Diverticulosis of intestine, part unspecified, without perforation or abscess without bleeding; E87.6 Hypokalemia; Z96.651 Presence of right artificial knee joint; Z87.891 Personal history of nicotine dependence; Z79.82 Long term (current) use of aspirin; Z88.0 Allergy status to penicillin; Z79.84 Long term (current) use of oral hypoglycemic drugs; E78.2 Mixed hyperlipidemia; R09.02 Hypoxemia
CPT/HCPCS: 71020; 71250; 76937; 80048; 80053; 81001; 82272; 82948; 83605; 83735; 84132; 85007; 85025; 85027; 86631; 86632; 86713; 86738; 87015; 87040; 87070; 87116; 87205; 87206; 87449; 87633; 87804; 94150; 94620; 94640; 94664; 94667; J0696; J1650; J1815; J1956; J2920; J3370; J7030; J7050; J7512

== ENCOUNTER → 2017-02-17 | Outpatient (CLI) | payer MEDICARE, OTHER ==
[~2017-02-17] MED LIST changes: +BENZ100 PO; -CALCTAB25; +FLUT1INH7 INH; +LEVA750T9 PO; +PRED10 PO; -TYLETAB34 PO; -ZITHTAB PO; +guaiFENesin ER PO
--- NOTE | 2017-02-25 08:51 | RSPPFT ---
DATE OF PROCEDURE: 02/17/17 COMMENTS: VOLUMES DYNAMIC: FVC and FEV1 mildly reduced. STATIC: TLC, RV, FRC normal. FLOWS: FEV1% mildly reduced; FEF 25-75 severely reduced. DIFFUSION: Mildly reduced. FLOW VOLUME LOOP: Pattern of variable intrathoracic airways obstruction. IMPRESSION: Mild to moderate obstructive ventilator defect with increased airways resistance and reduction in diffusion. No significant hyperinflation and no significant improvement post-bronchodilator noted.
== END ==
LOC: PHRSP 07:27
PROVIDERS: ATTEND Internal Medicine
DX: J44.9 Chronic obstructive pulmonary disease, unspecified (principal)
CPT/HCPCS: 94060; 94620; 94726; 94729

== ENCOUNTER 2017-11-27 14:59 | Emergency (ER) | payer MEDICARE, OTHER ==
[~2017-11-27] VITALS: Ht 165.1 cm; Wt 83.0 kg
[2017-11-27] VITALS (7 sets, daily range): BP systolic 149–166; BP diastolic 62–86; PULSE 72–97; RESP 16–18; TEMP 98.1; O2SAT 95–98
[~2017-11-27 14:59] MED LIST changes: -ASPI-110 PO; +ASPI1TAB57 PO; +CHOL10008 PO; -DEXI60CA2 PO; +DEXI60CA3 PO; -QUIN40TA17 PO; +QUIN40TA22 PO; -VITA100036 PO
[2017-11-27] MEDS ORDERED: SODIUM CHLOR 0.9% 1000 ML INJ 1,000 ML IV ONE (15:42)
[2017-11-27] MEDS ORDERED: SODIUM CHLORIDE 0.9% FLUSH 10 ML FLUSH IVF PRN (15:45)
--- NOTE | 2017-11-27 16:12 | PD ---
HPI Chief Complaint: Dizziness Time Seen by Provider: 15:09 Travel History International Travel<30 days: No Contact w/Intl Traveler<30days: No Traveled to known affect area: No History of Present Illness HPI This is a 72-year-old female who presents to the emergency department with lightheadedness that has been going on for over a week, constant, worse with walking and standing, improved with rest feeling leg she is distant, and feeling like she is going to pass out. She feels generally fatigued and malaised. She has noticed some dark urine. She denies any dysuria, frequency or urgency. Her stools are always dark because she takes iron and has chronic anemia. She had a recent colonoscopy and endoscopy by Dr. Bernal on the setting of GERD. 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) Cardiovascular Problems: Yes (HTN, CHOL) High Cholesterol: Yes Chemotherapy: No Chest Pain: Yes Congestive Heart Failure: No COPD: Yes Cerebrovascular Accident: No Diabetes: Yes Patient Takes Glucophage: No Diminished Hearing: No Endocrine: Yes Gastrointestinal Disorders: Yes (HAS HAD ESOPHAGEAL DILITATION, GERD) GERD: Yes Genitourinary: No Hepatitis: No Hiatal Hernia: Yes Hypertension: Yes Immune Disorder: No Implanted Vascular Access Dvce: Yes Kidney Stones: No Musculoskeletal: Yes (RIGHT PATELLA CRACKED,TEAR RIGHT ROTATOR CUFF, LEFT KNEE DEGENERATION) Neurologic: Yes (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, DIFFICULTY WITH BALANCE) Psychiatric: Yes (ANXIETY/DEPRESSION) Reproductive: No Respiratory: Yes (COPD) Immunizations Current: Yes Migraines: No Radiation Therapy: No Seizures: No Sleep Apnea: Yes (own c-pap) Thyroid Disease: No ?: Not Menopausal: Yes Past Surgical History Abdominal Surgery: Yes (LAP CHOLECYSTECTOMY) Body Medical Devices: LUMBAR HARDWARE Cardiac Surgery: No Cholecystectomy: Yes Eye Surgery: Yes (BILATERAL CATARACT) Gynecologic Surgery: Yes (TUBAL LIG.) Joint Replacement: Yes (RIGHT KNEE CAP) Neurologic Surgery: Yes (LUMBAR LAMINECTOMY) Pacemaker: No Thoracic Surgery: No Tonsillectomy: Yes Other Surgery: Yes Social History Alcohol Use: Yes (OCCASIONALLY wine) Tobacco Use: No (QUIT 40 YRS AGO) Substance Use: No Allergies-Medications (Allergen,Severity, Reaction): Coded Allergies: penicillin G (Verified Allergy, Severe, SWELLING HIVES ITCHING, 11/27/17) Reported Meds & Prescriptions Reported Meds & Active Scripts Active Breo Ellipta Inh (Fluticasone/Vilanterol) 200-25 Mcg/Act Inh 1 Puff INH DAILY Use daily at the same time. [guaiFENesin ER] 600 MG Tabcr 600 Mg PO BID Prednisone 10 Mg Tab 10 Mg PO DAILY 5 Days Levaquin (Levofloxacin) 750 Mg Tablet 750 Mg PO DAILY@1600 Tessalon Perles (Benzonatate) 100 Mg Cap 200 Mg PO TID PRN Reported Quinapril HCl 40 Mg Tablet 1 Tab PO DAILY Dexilant (Dexlansoprazole) 60 Mg Cap.bp 1 Cap PO EVERY OTHER DAY Gabapentin 300 Mg Cap 300 Mg PO HS Tramadol (Tramadol HCl) 50 Mg Tab 50 Mg PO Q4H PRN Janumet (Sitagliptin-Metformin) 50-500 Mg Tab 1 Tab PO BID Vitamin D3 (Cholecalciferol) 1,000 Unit Cap 1,000 Units PO DAILY Aspirin 81 (Aspirin) 81 Mg Tabdr 81 Mg PO DAILY Lipitor (Atorvastatin Calcium) 20 Mg Tab 20 Mg PO HS Xanax (Alprazolam) 0.5 Mg Tab 0.5 Mg PO HS Effexor (Venlafaxine HCl) 75 Mg Tab 75 Mg PO HS Review of Systems Except as stated in HPI: all other systems reviewed are Neg Physical Exam Narrative GENERAL:Well appearing, no acute distress SKIN: Dry with skin tenting. HEAD: Atraumatic. Normocephalic. EYES: Pupils equal and round. No injection or drainage. ENT: Moist mucous membranes NECK: Trachea midline. CARDIOVASCULAR: Regular rate and rhythm. No murmur appreciated. RESPIRATORY: Clear to auscultation. Breath sounds equal bilaterally. GASTROINTESTINAL: Abdomen soft, non-tender, nondistended. MUSCULOSKELETAL: No obvious deformities. NEUROLOGICAL: Awake and alert. No obvious cranial nerve deficits. No dysarthria or aphasia. Moving all extremities. PSYCHIATRIC: Appropriate mood and affect; insight and judgment normal. Data Data Last Documented VS Vital Signs Date Time Temp Pulse Resp B/P (MAP) Pulse Ox O2 Delivery O2 Flow Rate FiO2 11/27/17 17:57 74 16 150/70 (96) 97 Room Air 11/27/17 15:05 98.1 Orders Orders Electrocardiogram (11/27/17 15:42) Complete Blood Count With Diff (11/27/17 15:42) Comprehensive Metabolic Panel (11/27/17 15:42) Troponin I (11/27/17 15:42) Urinalysis - C+S If Indicated (11/27/17 15:42) Ecg Monitoring (11/27/17 15:42) Iv Access Insert/Monitor (11/27/17 15:42) Oximetry (11/27/17 15:42) Sodium Chloride 0.9% Flush (Ns Flush) (11/27/17 15:45) Sodium Chlor 0.9% 1000 Ml Inj (Ns 1000 M (11/27/17 15:42) Orthostatic Vital Signs (11/27/17 15:42) Acetaminophen (Tylenol) (11/27/17 18:00) Labs Laboratory Tests Test 11/27/17 16:06 11/27/17 17:34 White Blood Count 6.2 TH/MM3 Red Blood Count 4.81 MIL/MM3 Hemoglobin 12.9 GM/DL Hematocrit 40.2 % Mean Corpuscular Volume 83.6 FL Mean Corpuscular Hemoglobin 26.8 PG Mean Corpuscular Hemoglobin Concent 32.1 % Red Cell Distribution Width 14.8 % Platelet Count 258 TH/MM3 Mean Platelet Volume 8.7 FL Neutrophils (%) (Auto) 66.0 % Lymphocytes (%) (Auto) 23.4 % Monocytes (%) (Auto) 5.8 % Eosinophils (%) (Auto) 4.2 % Basophils (%) (Auto) 0.6 % Neutrophils # (Auto) 4.1 TH/MM3 Lymphocytes # (Auto) 1.4 TH/MM3 Monocytes # (Auto) 0.4 TH/MM3 Eosinophils # (Auto) 0.3 TH/MM3 Basophils # (Auto) 0.0 TH/MM3 CBC Comment DIFF FINAL Differential Comment Blood Urea Nitrogen 14 MG/DL Creatinine 0.77 MG/DL Random Glucose 241 MG/DL Total Protein 7.4 GM/DL Albumin 3.8 GM/DL Calcium Level 9.3 MG/DL Alkaline Phosphatase 85 U/L Aspartate Amino Transf (AST/SGOT) 35 U/L Alanine Aminotransferase (ALT/SGPT) 62 U/L Total Bilirubin 0.2 MG/DL Sodium Level 142 MEQ/L Potassium Level 4.1 MEQ/L Chloride Level 106 MEQ/L Carbon Dioxide Level 28.0 MEQ/L Anion Gap 8 MEQ/L Estimat Glomerular Filtration Rate 74 ML/MIN Troponin I LESS THAN 0.02 NG/ML Urine Color YELLOW Urine Turbidity CLEAR Urine pH 5.5 Urine Specific [place] LESS/EQUAL 1.005 Urine Protein NEG mg/dL Urine Glucose (UA) 500 mg/dL Urine Ketones NEG mg/dL Urine Occult Blood NEG Urine Nitrite NEG Urine Bilirubin NEG Urine Urobilinogen 0.2 MG/DL Urine Leukocyte Esterase NEG MDM Medical Decision Making Medical Screen Exam Complete: Yes Emergency Medical Condition: Yes Interpretation(s) EKG: sinus arrythmia, no st changes no leukocytosis electrolytes reassuring hyperglycemia Urinalysis: Glucosuria Differential Diagnosis Dehydration, orthostatic hypotension, urinary tract infection, anemia, electrolyte abnormality Narrative Course This is a 72-year-old female who presents to the emergency department with fatigue, lightheadedness and generalized weakness has been going on for greater than a week. She was placed on a monitor and an IV was established. EKG is reassuring. Labs demonstrate hyperglycemia and urinalysis demonstrates glucosuria. Orthostatic vital signs are reassuring. I suspect the patient's symptoms are in the setting of dehydration due to poorly controlled hyperglycemia. She was given a liter of fluid and she feels much better. She has close follow-up with Dr. Sauer and will call her on Wednesday to make an appointment and discuss her symptoms with her. She agrees to return to the emergency department if her symptoms worsen Diagnosis Primary Impression: Hyperglycemia Patient Instructions: General Instructions Additional Instructions: If you develop severe chest pain, shortness of breath, sweating, lightheadedness , dizziness or difficulty breathing return to the emergency department immediately. Followup with your primary care physician in 2-3 days if your symptoms are not resolved. Med/Other Pt SpecificInfo: No Change to Meds Disposition: 01 DISCHARGE HOME Condition: Stable Sarah Linn MD November 27, 2017 16:12
[2017-11-27 16:41] LABS: AUTOMATED NEUTROPHIL # 4.1 TH/MM3 (1.8-7.7); BASOPHIL % 0.6 % (0.0-2.0); EOSINOPHIL # 0.3 TH/MM3 (0-0.4); EOSINOPHIL % 4.2 % (0.0-4.0); HEMATOCRIT 40.2 % (35.0-46.0); HEMOGLOBIN 12.9 GM/DL (11.6-15.3); LYMPH % 23.4 % (9.0-44.0); LYMPHOCYTE # 1.4 TH/MM3 (1.0-4.8); MEAN CELL VOLUME 83.6 FL (80.0-100.0); MEAN CORPUSCULAR HEMOGLOBIN 26.8 PG (27.0-34.0); MEAN CORPUSCULAR HGB CONC 32.1 % (32.0-36.0); MEAN PLATELET VOLUME 8.7 FL (7.0-11.0); MONO % 5.8 % (0.0-8.0); MONOCYTE # 0.4 TH/MM3 (0-0.9); PLATELET COUNT 258 TH/MM3 (150-450); RED BLOOD COUNT 4.81 MIL/MM3 (4.00-5.30); RED CELL DISTRIBUTION WIDTH 14.8 % (11.6-17.2); WHITE BLOOD COUNT 6.2 TH/MM3 (4.0-11.0)
[2017-11-27 16:55] LABS: CHLORIDE 106 MEQ/L (98-107); SODIUM (NA) 142 MEQ/L (136-145)
[2017-11-27 17:00] LABS: ALBUMIN 3.8 GM/DL (3.4-5.0); CALCIUM 9.3 MG/DL (8.5-10.1); GLUCOSE,RANDOM 241 MG/DL (74-106)
[2017-11-27 17:01] LABS: BLOOD UREA NITROGEN 14 MG/DL (7-18)
[2017-11-27 17:03] LABS: ALT (GPT) 62 U/L (10-53)
[2017-11-27 17:04] LABS: AST (GOT) 35 U/L (15-37); CREATININE 0.77 MG/DL (0.50-1.00); GLOMERULAR FILTRATION RATE 74 ML/MIN (>89)
[2017-11-27 17:05] LABS: TOTAL BILIRUBIN ADULT 0.2 MG/DL (0.2-1.0); TOTAL PROTEIN 7.4 GM/DL (6.4-8.2)
[2017-11-27 17:06] LABS: ALKALINE PHOSPHATASE 85 U/L (45-117)
[2017-11-27 17:08] LABS: TROPONIN I LESS THAN 0.02 NG/ML (0.02-0.05)
[2017-11-27 17:59] LABS: BILIRUBIN, URINE NEG (NEG); BLOOD, URINE NEG (NEG); GLUCOSE,URINE 500 mg/dL (NEG); KETONE, URINE NEG (NEG); NITRITE,URINE NEG (NEG); PH, URINE 5.5 (5.0-8.5); URINE COLOR YELLOW (YELLW/STRAW); URINE LEUKOCYTE ESTERASE NEG (NEG)
[2017-11-27] MEDS ORDERED: ACETAMINOPHEN 500 MG CPLT PO ONE (18:00)
[2017-11-27 18:09] LABS: RBC, URINE 0-2 /hpf (0-3); SQUAMOUS EPITHELIAL CELL URINE 0-5 /hpf (0-5); WBC, URINE 0-2 /hpf (0-5)
--- NOTE | 2017-11-28 13:17 | EKG ---
Date Performed: 11/27/2017 Time Performed: 16:16:10 PTAGE: 72 years EKG: Sinus rhythm WITH MARKED SINUS ARRHYTHMIA POSSIBLE RIGHT VENTRICULAR CONDUCTION DELAY BORDERLINE ECG Compared to PREVIOUS TRACING , sinus arrhythmia is new. PREVIOUS TRACIN08/29/2014 18.47 DOCTOR: Eric Yi Interpretating Date/Time 11/28/2017 13:17:25
== END 2017-11-27 18:31 | disposition home or self-care (01) ==
LOC: PHED 14:59
DX: E11.65 Type 2 diabetes mellitus with hyperglycemia (principal); D64.9 Anemia, unspecified; K21.9 Gastro-esophageal reflux disease without esophagitis; F32.9 Major depressive disorder, single episode, unspecified; E78.00 Pure hypercholesterolemia, unspecified; I10 Essential (primary) hypertension; J44.9 Chronic obstructive pulmonary disease, unspecified; R94.31 Abnormal electrocardiogram [ECG] [EKG]; Z87.891 Personal history of nicotine dependence
CPT/HCPCS: 80053; 81001; 84484; 85025; 93005; 96360; 99284; J7030